=== PATIENT | female | born 1945 | race African-American/Black ===

== ENCOUNTER 2016-10-07 10:05 | Inpatient (IN) ==
--- NOTE | 2016-10-07 10:51 | CT Report ---
CT head/brain wo con INDICATION: Altered mental status/confusion The total DLP is 914 mGy*cm. COMPARISON: none available Technique: Serial axial tomographic images of the brain were obtained without the use of intravenous contrast. Dose reduction: This CT exam was performed using one or more of the following dose reduction techniques: Automated exposure control, automated adjustment of the mA and/or KV according to patient size, or use of iterative reconstruction technique. Findings: Moderate generalized atrophy is noted with mild prominence of the sulci and cortical volume loss. Periventricular white matter hypodensity changes are noted bilaterally which do not demonstrate mass effect and are nonspecific but favored to represent sequela of chronic microvascular ischemia. Somewhat prominent focal hypodensity within the right centrum semiovale is also noted which may represent an age-indeterminate lacunar infarct. There is also focal mild hypodensity within the left caudate and basal ganglia suggestive of remote lacunar infarct. There is no evidence of vascular territory infarct or acute intracranial hemorrhage. The casey-white matter differentiation is generally maintained. There is no hydrocephalus. The basilar cisterns are patent. The visualized paranasal sinuses, mastoid air cells and middle ear cavities are predominantly clear. The included orbits and their contents appear within normal limits. The visualized osseous structures and overlying soft tissues of the skull and face demonstrate no acute abnormality. IMPRESSION: No acute intracranial hemorrhage or infarction. Advanced atrophy with prominent periventricular white matter hypodensity changes suggestive of sequela of chronic microvascular ischemia. Additional somewhat focal areas of hypodensity as detailed above may represent age-indeterminate lacunar infarcts. If there is continued clinical concern for acute infarct, MRI would be recommended. PROCEDURE INTERPRETED AT [facility] DEPARTMENT OF RADIOLOGY Final Report Signed by: John Flanagan
--- NOTE | 2016-10-07 10:53 | XRay Report ---
XR chest 1V portable Indication: Altered mental status Comparison: None Technique: Single frontal view of the chest. Findings: Borderline cardiomegaly. Chronic change of the lungs without focal consolidation, pleural effusion, or pneumothorax. Visualized osseous and surrounding soft tissue structures demonstrate no acute abnormality. Marginal osteophytes of the thoracic spine. IMPRESSION: Borderline cardiomegaly without hallie pulmonary edema. PROCEDURE INTERPRETED AT [facility] DEPARTMENT OF RADIOLOGY Final Report Signed by: Dr Yohan Welsh
[2016-10-07 11:17] LABS: Basophils # 0.1 10*3/uL (0.0-0.2); Basophils % 0.6 % (0.0-0.8); Eosinophils # 0.1 10*3/uL (0.0-0.87); Eosinophils % 1.6 % (0.00-10.9); Hematocrit 37.7 VOL% (35.7-47.0); Hemoglobin 12.7 GM/DL (12.0-16.0); Immature Granulocytes % 0.6 %; Immature Granulocytes Absolute 0.05 #; Lymphocytes # 1.8 10*3/uL (1.4-4.0); Lymphocytes % 19.6 % (21.3-54.2); Mean Corpuscular HGB Conc 33.7 GM/DL (32-36); Mean Corpuscular Hemoglobin 30 PG (27-34); Mean Corpuscular Volume 87.9 FL (87-102); Mean Platelet Volume 9.3 FL (9.6-12.0); Monocytes # 0.8 10*3/uL (0.11-0.8); Monocytes % 8.8 % (1.7-12.7); Neutrophils # 6.2 10*3/uL (1.4-7.4); Neutrophils % 68.8 % (38.7-73.9); Platelet Count 217 T/CUMM (130-400); Red Blood Count 4.29 MC/CUMM (3.8-5.5); Red Cell Distribution Width 14.1 % (9.3-17.3); White Blood Count 8.9 T/CUMM (4-12)
[2016-10-07 11:55] LABS: Bilirubin,Total 0.5 MG/DL (0.2-1.0); Calcium 9.4 MG/DL (8.5-10.1); Osmolality,Calculated 283.5 MOS/KG (273-304); Potassium 4.2 MMOL/L (3.5-5.1); Total Protein 7.6 G/DL (6.4-8.3)
[2016-10-07 11:56] LABS: Troponin I Only 0.094 NG/ML (0.00-0.045)
[2016-10-07 12:02] LABS: Apearance,Urine CLEAR (Clear); Bacteria,Urine Occasional /HPF (Few); Bilirubin,Urine Negative (Negative); Blood, Urine Negative (Negative); Glucose,Urine (UA) Negative (Negative); Ketones,Urine Negative (Negative); Mucus,Urine Occasional /LPF (Occasional); Nitrite,Urine Negative (Negative); Protein,Urine >=500 MG/DL; RBC,Urine 6 /HPF (0-4); Squamous Epithelial Cell,Urine Occasional /HPF (0-10); Urine Color Yellow (Yellow); Urine Specific Gravity 1.013 (1.001-1.035); Urine Urobilinogen < 2.0 EU/DL (0.2-1.0); WBC,Urine <1 /HPF (0-6)
--- NOTE | 2016-10-07 12:58 | EKG Report ---
Stationary ECG Study [facility] ER Test Date: 10/07/2016 12:56:48 PM Pat Name: HAYLEY BRADY Department: Room: Gender: F [employer] Adviser: : 1945 Requested by: Greg Adorno Order Number: [id number] Reading MD: SUMMER MEZA Intervals [place] Rate: 79 P: 33 [place]: 128 QRS: -23 QRSD: 101 T: 83 QT: 379 QTc: 414 Interpretive Statements SINUS RHYTHM POSSIBLE LEFT ATRIAL ENLARGEMENT BORDERLINE LEFT AXIS DEVIATION POSSIBLE LEFT VENTRICULAR HYPERTROPHY NONSPECIFIC T-WAVE ABNORMALITY Electronically Signed On 10-07-16 13:25:56 CDT by SUMMER MEZA [email or web address]
--- NOTE | 2016-10-07 13:03 | Emergency Department Note ---
Trace Castaneda Brittany, am scribing for, and in the presence of, Greg Saldana MD 10:36. Les Castaneda Phillip K, MD, personally performed the services described in this documentation, ascribed by Suma Woodward in my presence, and it is both accurate and complete . Arrival - Arrival Chief Complaint: Altered Mental Status Stated Complaint: AMS From [facility] ED Nursing Triage Note: accucheck 123 mg/dl, pt with decreased loc per e[facility] staff , pt has of traumatic brain injury, hx from pt limited. pt does answer yes and no questions appropriately Mode of Arrival: Stretcher Limitations: No Limitations Source: Patient, RN Notes Reviewed - History of Present Illness HPI Narrative: Patient is a 71 y/o black female presenting to the ED via EMS from [facility] for further evaluation of AMS. Patient was sent here from [facility] after staff noticed change in mental status and were concerned of another CVA. Patient is able to answer yes/no questions appropriately. History is limited secondary to patient's AMS and Dementia. Family at the bedside reports that patient is usually more talkative and her current state is not her baseline, noting that patient is not acting herself. Patient is bedridden with residual left sided weakness from prior CVA and is usually put up in a chair during the daytime. Patient is able to follow commands, but has trouble with orientation to time, person, and place. Family at the bedside is unsure if patient has had any recent fevers. No other complaints reported. PMHx significant for CHF, HTN, CVA, Dementia, IDDM, NIDDM, Dyslipidemia, Gout, and Traumatic Brain Injury. Allergies/Adverse Reactions: Allergies Allergy/AdvReac Type Severity Reaction Status Date / Time No Known Allergies Allergy Verified 10/07/16 10:20 Home Medications: Home Medications Medication Instructions Recorded Confirmed Type Acetaminophen Tab [Tylenol Tab] 650 mg PO Q4H PRN 10/07/16 10/07/16 History Aspirin EC Tab 81 mg PO 0900 10/07/16 10/07/16 History Colchicine [Colcrys] 0.6 mg PO 0900 10/07/16 10/07/16 History Diclofenac 1% Gel [Voltaren 1% Gel] 1 applic TOP TID 10/07/16 10/07/16 History Escitalopram Oxalate 5 mg PO 0900 10/07/16 10/07/16 History Famotidine Tab [Pepcid Tab] 20 mg PO 2100 10/07/16 10/07/16 History Multivitamin with Iron 1 each PO 00 10/07/16 10/07/16 History [Multivitamins with Iron] Tramadol HCl [Tramadol Tab] 50 mg PO Q6H PRN 10/07/16 10/07/16 History hydroCHLOROthiazide 50 mg PO 0910/07/16 10/07/16 History [Hydrochlorothiazide] Review of System - Review of System ROS unobtainable: due to mental status - Review of System Neurological: Present: confusion Medical,Surgical,& Family Hx - Medical History Cardio: History of: CHF, Hypertension Neurology: History of: Cerebrovascular Accident, Dementia Endocrine: History of: Diabetes Mellitus (IDDM), Diabetes Mellitus (NIDDM), Dyslipidemia Rheumatology: History of;: Gout - Social History Smoking Status: Never smoker Exam Vital Signs: Vital Signs Temperature 96.5 F L 10/07/16 10:08 Pulse Rate 72 10/07/16 10:08 Respiratory Rate 22 10/07/16 10:08 Blood Pressure 184/113 10/07/16 10:08 O2 Sat by Pulse Oximetry 98 10/07/16 10:08 - General General appearance: alert, in no apparent distress - Head Head exam: Present: atraumatic, normocephalic, normal inspection - Eye Eye exam: Present: normal appearance, PERRL, EOMI - ENT ENT exam: Present: normal exam, normal oropharynx - Neck Neck exam: Present: normal inspection, full ROM, trachea midline - Chest Chest inspection: Present: normal inspection, symmetric chest wall rise - Respiratory Respiratory exam: Present: normal lung sounds bilaterally - Cardiovascular Cardiovascular exam: Present: regular rate, normal rhythm, normal heart sounds - Abdominal Exam Abdominal exam: Present: soft, tenderness, normal bowel sounds - Extremities Exam Extremities exam: Present: pedal edema (trace +1 edema to bilateral lower extremities). Absent: normal inspection - Back Exam Back exam: Present: normal inspection - Neurological Exam Neurological exam: Present: alert, CN II-XII intact, other (residual left sided weakness from prior CVA). Absent: oriented X3, motor sensory deficit - Psychiatric Psychiatric exam: Present: normal affect, normal mood - Skin Skin exam: Present: warm, dry Results - Labs CBC & BMP: 10/07/16 11:05 10/07/16 11:05 Lab Results: I have reviewed the patients labs (Urinalysis is normal) Labs: Laboratory Tests 10/07/16 11:05 WBC 8.9 RBC 4.29 Hgb 12.7 Hct 37.7 Plt Count 217 MPV 9.3 L Lymph % (Auto) 19.6 L Laboratory Tests 10/07/16 11:05 Sodium 139 Potassium 4.2 Chloride 105 Carbon Dioxide 27 BUN 30 H Creatinine 1.90 H Glucose 119 H Troponin I 0.094 H Albumin 3.0 L Globulin 4.6 H Albumin/Globulin Ratio 0.6 L Laboratory Tests 10/07/16 11:05 Urine Color Yellow Urine Appearance Clear Urine pH 5.0 Ur Specific [place] 1.013 Urine Protein >=500 Urine Glucose (UA) Negative Urine Ketones Negative Urine Blood Negative Urine Nitrate Negative Urine Bilirubin Negative Urine Urobilinogen < 2.0 H Urine Leukocytes Negative Urine RBC 6 Urine WBC <1 Ur Squamous Epith Cells Occasional Urine Bacteria Occasional Urine Mucus Occasional - EKG EKG results: interpreted by ERMAmy, sinus rhythm (Nonspecific ST-T changes) - Diagnostic Findings Procedure: Chest x-ray: report reviewed by me (Borderline cardiomegaly without hallie pulmonary edema.), CT: report reviewed by me (CT Head: No acute intracranial hemorrhage or infarction. Advanced atrophy with prominent periventricular white matter hypodensity changes suggestive of sequela of chronic microvascular ischemia. Additional somewhat focal areas of hypodensity as detailed above may represent age-indeterminate lacunar infarcts. If there is continued clinical concern for acute infarct, MRI would be recommended.) Disposition Clinical Impression: Altered mental status, Elevated troponin Case discussed with: patient's family Disposition: Still a Patient Condition: Guarded Additional Instructions: Admit to the hospitalist
--- NOTE | 2016-10-07 14:08 | Hospitalist History & Physical ---
<Milton Tejeda - Last Filed: 10/07/16 14:15> History of Present Illness History of present illness: Ms. Blake is a 71 year old female is being admitted to the hospital with altered mental status, renal insufficiency, and elevated serum troponin. A CT scan of the head demonstrated no acute abnormalities. I have interviewed and examined the patient, reviewed all available laboratory tests, and reviewed the available x-rays and CT scan. We will continue her present medications. I have ordered an MRI of the brain, and consulted neurology. Home Medications Medication Instructions Recorded Confirmed Type Acetaminophen Tab [Tylenol Tab] 650 mg PO Q4H PRN 10/07/16 10/07/16 History Aspirin EC Tab 81 mg PO 0900 10/07/16 10/07/16 History Colchicine [Colcrys] 0.6 mg PO 0900 10/07/16 10/07/16 History Diclofenac 1% Gel [Voltaren 1% Gel] 1 applic TOP TID 10/07/16 10/07/16 History Escitalopram Oxalate 5 mg PO 0900 10/07/16 10/07/16 History Famotidine Tab [Pepcid Tab] 20 mg PO 2100 10/07/16 10/07/16 History Multivitamin with Iron 1 each PO 0900 10/07/16 10/07/16 History [Multivitamins with Iron] Tramadol HCl [Tramadol Tab] 50 mg PO Q6H PRN 10/07/16 10/07/16 History hydroCHLOROthiazide 50 mg PO 0900 10/07/16 10/07/16 History [Hydrochlorothiazide] Allergies Allergy/AdvReac Type Severity Reaction Status Date / Time No Known Allergies Allergy Verified 10/07/16 10:20 Exam - Constitutional Vitals: Period Temp Pulse Resp BP Sys/Leger Pulse Ox Last 24 Hr 96.5 F 72 22 184/113 98 Results - Labs CBC & BMP: 10/07/16 11:05 10/07/16 11:05 <Emily Villanueva - Last Filed: 10/07/16 15:31> Assessment and Plan (1) Altered mental status Status: Acute Assessment and plan: Admit to med surg. CT showed 'no acute intracranial hemorrhage or infarction'. Also showed somewhat focal areas of hypodensity as detailed above may represent age-indeterminate lacunar infarcts'. MRI pending. Blood cultures obtained. UA negative. Normal WBC count. Monitor patient daily labs. Lipid panel ordered. Will consult neuro for evaluation. Current Visit: Yes (2) Elevated troponin level Status: Acute Assessment and plan: Possibly secondary to renal function. Will cycle troponins to rule out any cardiac issues. Current Visit: Yes (3) Diabetes Status: Acute Assessment and plan: Accuchecks achs. Current Visit: Yes History of Present Illness Chief complaint: altered mental status History of present illness: Ms. Blake is a 71 year old female with a history of hypertension, CHF, CVA, diabetes, dementia, dyslipidemia, gout, and traumatic brain injury presented to the ED via EMS from [facility]. Patient was sent over for further evaluation of altered mental status. Staff at the facility were concerned the patient was having another CVA. Family member is present at the bedside. Family reports that patient's current state is not her baseline. Pt is unable to provide any information. She is oriented only to self and birthdate. She is able to follow commands. CXR showed 'borderline cardiomegaly without hallie pulmonary edema'. CT revealed 'no acute intracranial hemorrhage or infarct ' showed additional somewhat focal areas of hypodensity may represent age indeterminate lacunar infarcts. Pt. will be admitted for further eval and treatment. Medical,Surgical,& Family Hx - Medical History Cardio: History of: CHF, Hypertension Neurology: History of: Cerebrovascular Accident, Dementia Endocrine: History of: Diabetes Mellitus (IDDM), Diabetes Mellitus (NIDDM), Dyslipidemia Rheumatology: History of;: Gout - Social History Smoking Status: Never smoker Lives With:: senior care Functional capacity: wheelchair bound ROS unobtainable: due to mental status Exam - Constitutional Vitals: Period Temp Pulse Resp BP Sys/Leger Pulse Ox Last 24 Hr 96.5 F 72 22 184/113 98 General appearance: no acute distress, morbidly obese - Head Head exam: Present: normal inspection, normocephalic - Eye Eye exam: Present: EOMI. Absent: scleral icterus Pupils: Present: CARLOS - Respiratory Respiratory exam: Present: clear to auscultation bilaterally. Absent: wheezes - Cardiovascular Cardiovascular exam: Present: regular rate and rhythm - GI/Abdominal GI/Abdominal exam: Present: normal bowel sounds, soft. Absent: tenderness - Extremities Exam Extremities exam: Present: normal inspection - Neurological Exam Neurological exam: Present: altered. Absent: oriented X3 - Psychiatric Psychiatric exam: Absent: normal mood - Skin Skin exam: Present: normal color, warm, dry Results - Labs CBC & BMP: 10/07/16 11:05 10/07/16 11:05 Lab Results: I have reviewed the past 24 hour labs
[2016-10-07] MEDS ORDERED: ACETAMINOPHEN 325 MG TABLET PO PRN (15:13)
[2016-10-07] MEDS ORDERED: ONDANSETRON 4 MG/2 ML VIAL IV PRN (15:13)
[2016-10-07 15:47] LABS: Barbiturates Screen,Urine Negative (Negative); Benzodiazepines Screen,Urine Negative (Negative); Cannabinoid Screen,Urine Negative (Negative); Opiate Screen,Urine Negative (Negative); Phencyclidine Screen,Urine Negative (Negative)
--- NOTE | 2016-10-07 16:11 | Neurology Consult Note ---
History of Present Illness History of present illness: Patient is unable to provide me any history. History basically obtained from the chart. 71 years old -Greek lady with past medical history significant for congestive heart failure, hypertension, CVA, dementia, diabetes , dyslipidemia, gout, traumatic brain injury who is a shelter resident admitted to the hospital with change in mental status. Patient is bedridden with residual left-sided weakness from prior CVA and is usually transferred from bed to chair during the daytime. At the baseline patient is able to answer yes or no questions appropriately. However nursing staff at that shelter noted that she is not following commands appropriately. Family also reported that patient is usually more talkative and her current state is not her baseline. She is now being admitted for further evaluation. A CT of the brain reveals no acute abnormalities. Home Medications Medication Instructions Recorded Confirmed Type Acetaminophen Tab [Tylenol Tab] 650 mg PO Q4H PRN 10/07/16 10/07/16 History Aspirin EC Tab 81 mg PO 0900 10/07/16 10/07/16 History Colchicine [Colcrys] 0.6 mg PO 0900 10/07/16 10/07/16 History Diclofenac 1% Gel [Voltaren 1% Gel] 1 applic TOP TID 10/07/16 10/07/16 History Escitalopram Oxalate 5 mg PO 0900 10/07/16 10/07/16 History Famotidine Tab [Pepcid Tab] 20 mg PO 2100 10/07/16 10/07/16 History Multivitamin with Iron 1 each PO 0900 10/07/16 10/07/16 History [Multivitamins with Iron] Tramadol HCl [Tramadol Tab] 50 mg PO Q6H PRN 10/07/16 10/07/16 History hydroCHLOROthiazide 50 mg PO 0900 10/07/16 10/07/16 History [Hydrochlorothiazide] Allergies Allergy/AdvReac Type Severity Reaction Status Date / Time No Known Allergies Allergy Verified 10/07/16 10:20 ROS unobtainable: due to mental status Medical,Surgical,& Family Hx - Medical History Cardio: History of: CHF, Hypertension Psychological: No history of: Anxiety Disorders, ADHD, Behavior Problems, Bipolar Disorder, Depression, Previous Suicide Attempt, Psychiatric/Substance Abuse Tx, Schizophrenia, Violent Behavior, Psychiatric Problems Neurology: History of: Cerebrovascular Accident, Dementia Endocrine: History of: Diabetes Mellitus (IDDM), Diabetes Mellitus (NIDDM), Dyslipidemia Rheumatology: History of;: Gout Gastrointestinal: History of: GI Problems (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 NECK: Neck is supple. There is no JVD. No carotid bruits present. No thyroid masses. CVS: First and second heart sounds are normal. There is no S3 present. Regular rate and rhythm. RESPIRATORY: Lungs are clear to auscultation without any rales or rhonchi. ABDOMEN: Soft and non-tender. Bowel sounds are present. There is no hepatosplenomegaly. EXT: There is no palpable edema. Peripheral pulses are present. Skin: No rashes Central Nervous system: General: Sleepy but arousable Speech: Non-Fluent Comprehension: Impaired Facial expressions: Normal Cranial Nerves: Pupils are equally reactive to light. Extraocular movements are intact. No facial asymmetry is seen. Motor: Hypertonia in all 4 extremities. Strength cannot be assessed Sensory: Cannot be assessed Reflexes: 1+ and symmetrical Cerebellar function: Cannot be assessed Toes: Equivocal Gait: Cannot be assessed Results - Labs CBC & BMP: 10/07/16 11:05 10/07/16 11:05 Assessment and Plan (1) Altered mental status Status: Acute Assessment and plan: Differential diagnosis would include infectious/metabolic encephalopathy, new stroke, extension of the old stroke etc. Agree with MRI of the brain. Start and continue aspirin a day We will do MRI and make further recommendations. Thank you for the consult Current Visit: Yes
--- NOTE | 2016-10-07 17:41 | Magnetic Resonance Report ---
Exam: MR head/brain wo con Date: 10/07/2016 3:13 PM Comparison: CT brain 10/07/2016 Indication: Alteration of consciousness, renal insufficiency Technique:[Multiple acquisitions were obtained including sagittal T1, coronal T2, and axial ADC, diffusion, FLAIR, T2, GRE, and T1 scans without contrast only. Scans were obtained on a 1.5 Ana magnet.] Findings: Scans are degraded by motion artifact. The left lateral ventricle remains minimally larger in size than the right with no midline displacement. The pituitary has a normal appearance and the cerebellar tonsils are normal in their location. No acute infarction is identified on the diffusion scans. No evidence of hemorrhage, mass, or extracerebral collection. Diffuse atrophy and FLAIR/T2 hyperintensities. Chronic right centrum semiovale ovale, left grover radiata, and left pontine infarcts. Minimal mucosal thickening in the left maxillary sinus. No acute findings in the orbits, temporal bones, or [place]. Impression: Unfortunately the scans are degraded by motion artifact. No acute infarction. Diffuse atrophy with moderately severe microvascular disease and chronic infarcts. T2 hyperintensities can also be associated with demyelinating disease, vasculitis, viral illness, etc. PROCEDURE INTERPRETED AT [facility] DEPARTMENT OF RADIOLOGY Final Report Signed by: Dr. Irlanda Chiang
[2016-10-08 07:03] LABS: Basophils # 0.1 10*3/uL (0.0-0.2); Basophils % 0.8 % (0.0-0.8); Eosinophils # 0.2 10*3/uL (0.0-0.87); Eosinophils % 3.3 % (0.00-10.9); Hematocrit 33.8 VOL% (35.7-47.0); Hemoglobin 11.1 GM/DL (12.0-16.0); Immature Granulocytes % 0.4 %; Immature Granulocytes Absolute 0.03 #; Lymphocytes # 2.2 10*3/uL (1.4-4.0); Mean Corpuscular HGB Conc 32.8 GM/DL (32-36); Mean Corpuscular Hemoglobin 29 PG (27-34); Mean Corpuscular Volume 88.9 FL (87-102); Mean Platelet Volume 10.1 FL (9.6-12.0); Monocytes # 0.8 10*3/uL (0.11-0.8); Monocytes % 11.2 % (1.7-12.7); Neutrophils # 3.9 10*3/uL (1.4-7.4); Neutrophils % 54.3 % (38.7-73.9); Platelet Count 203 T/CUMM (130-400); Red Cell Distribution Width 14.2 % (9.3-17.3); White Blood Count 7.2 T/CUMM (4-12)
[2016-10-08 07:39] LABS: Calcium 9.4 MG/DL (8.5-10.1); Osmolality,Calculated 286.4 MOS/KG (273-304); Potassium 4.2 MMOL/L (3.5-5.1); Risk Ratio 1.9; Thyroid Stimulating Hormone 2.44 uIU/ml (0.358-3.74); VLDL CHOLESTEROL 9.6 MG/DL
--- NOTE | 2016-10-08 08:37 | Neurology Progress Note ---
Neurology - PN : Subjective Interval history: Patient may be a little better today. MRI of the brain failed to show any acute stroke. Patient's exact baseline is not known. She is from [facility]. UA is negative. Exam (Progress Note) - Constitutional Vitals: Period Temp Pulse Resp BP Sys/Leger Pulse Ox Last 24 Hr 96.5 F-98.9 F 58-74 16-22 135-184/69-113 94-99 Exam: GENERAL: Patient is in no acute distress. NECK: Neck is supple. There is no JVD. No carotid bruits present. No thyroid masses. CVS: First and second heart sounds are normal. There is no S3 present. Regular rate and rhythm. RESPIRATORY: Lungs are clear to auscultation without any rales or rhonchi. ABDOMEN: Soft and non-tender. Bowel sounds are present. There is no hepatosplenomegaly. EXT: There is no palpable edema. Peripheral pulses are present. Skin: No rashes Central Nervous system: General: Alert and awake Speech: Non-Fluent Comprehension: Impaired Facial expressions: Normal Cranial Nerves: Pupils are equally reactive to light. Extraocular movements are intact. No facial asymmetry is seen. Motor: Hypertonia in all 4 extremities. Strength cannot be assessed Sensory: Cannot be assessed Reflexes: 1+ and symmetrical Cerebellar function: Cannot be assessed Toes: Equivocal Gait: Cannot be assessed Results - Labs CBC & BMP: 10/08/16 05:47 10/08/16 05:47 Assessment and Plan (1) Altered mental status Status: Acute Assessment and plan: Differential diagnosis would include infectious/metabolic encephalopathy. No evidence of a new stroke. continue aspirin a day Ok to go back to [facility] when ok with PCP Sign off please call PRN Current Visit: Yes
[2016-10-08] MEDS: ASPIRIN EC 81 MG TABLET PO SCH (10:23)
[2016-10-08] MEDS: PANTOPRAZOLE 40 MG TABLET PO SCH (10:23)
[2016-10-08] MEDS ORDERED: VANCOMYCIN INJ 2,500 MG in SODIUM CHLORIDE 0.9% 500 ML IV ONE (13:00)
--- NOTE | 2016-10-08 14:35 | Hospitalist Progress Note ---
Assessment and Plan (1) Altered mental status Status: Acute Assessment and plan: MRI showed No acute infarction. Diffuse atrophy with moderately severe microvascular disease and chronic infarcts.Differential diagnosis would include infectious/metabolic encephalopathy. Neurology has seen, will follow recommendations. Current Visit: Yes (2) Staphylococcus aureus bacteremia Status: Acute Assessment and plan: BCx2 grew MRSA negative Plan Switch Vanc to Rocephin, follow sensitivity Current Visit: Yes (3) Elevated troponin level Status: Acute Assessment and plan: Will follow Echo Current Visit: Yes (4) Diabetes Status: Acute Assessment and plan: FeU3i-4.5, continue with current regime. Current Visit: Yes (5) Acute renal failure Status: Acute Assessment and plan: will hydrate gently, avoid nephrotoxics and switch Vanc to Rocephin, culture was MRSA negative. Current Visit: Yes (6) HTN (hypertension) Status: Acute Assessment and plan: will start Norvasc 5mg daily, follow response Current Visit: Yes Hospitalist: Subjective Interval history: patient seen today.Her blood cultures grew MRSA negative but no evidence of fever. Exam - Constitutional Vitals: Period Temp Pulse Resp BP Sys/Leger Pulse Ox Last 24 Hr 96.5 F-98.9 F 58-74 16-22 135-184/69-113 94-99 General appearance: no acute distress, morbidly obese - Head Head exam: Present: normal inspection - Respiratory Respiratory exam: Present: clear to auscultation bilaterally - Cardiovascular Cardiovascular exam: Present: regular rate and rhythm - GI/Abdominal GI/Abdominal exam: Present: normal bowel sounds - Extremities Exam Extremities exam: Present: normal inspection Results - Labs CBC & BMP: 10/08/16 05:47 10/08/16 05:47 Lab Results: I have reviewed the past 24 hour labs
[2016-10-08] MEDS: SODIUM CHLORIDE 0.9% 1,000 ML IV SCH (15:13)
[2016-10-08] MEDS: cefTRIAXone 1,000 MG in SODIUM CHLORIDE 0.9% 100 ML IV SCH (15:13)
[2016-10-08] MEDS: amLODIPine 5 MG TABLET PO SCH (15:14)
--- NOTE | 2016-10-08 17:58 | ECHO Report ---
Addie Blake Exam Date: 10/08/2016 10:49 Referring Physician: Technologist: Jeannette Jordan RDCS Age: 71 Ht (in): 66 Wt (lb): 255 Gender: F Exam Location: [facility] Echo Indications: Altered mental status, Elevated troponin, IDDM, Essential (primary) hypertension, Dementia, Dyslipidemia, hx Traumatic brain injury BP: 140 / 73 HR: 58 Rhythm: Sinus Technical Quality: IMPRESSIONS Technically difficult study Normal chamber sizes 2+ concentric LVH Normal LV systolic function with ejection fraction estimated to be 65% without segmental wall motion normality 1-2+ aortic regurgitation 1+ mitral and tricuspid regurgitation with RVSP 29 mmHg plus RAP MEASUREMENTS (Male / Female) Normal Values 2D ECHO LV Diastolic Diameter PLAX 4.6 cm 4.2 - 5.9 / 3.9 - 5.3 cm LV Systolic Diameter PLAX 3.1 cm LV Fractional Shortening PLAX 32.7 % IVS Diastolic Thickness 1.6 cm 0.6 - 1.0 / 0.6 - 0.9 cm LVPW Diastolic Thickness 1.6 cm 0.6 - 1.0 / 0.6 - 0.9 cm RV Internal Dim ED PLAX 3.0 cm Aortic Root Diameter 3.2 cm LA Systolic Diameter LX 3.4 cm 3.0 - 4.0 / 2.7 - 3.8 cm DOPPLER TR Peak Velocity 269.0 cm/s TR Peak Gradient 28.9 mmHg FINDINGS Left Ventricle Normal left ventricular cavity size. Moderate left ventricular hypertrophy. Left ventricular ejection fraction is estimated Right Ventricle The right ventricle is normal in size and function. Right Atrium The right atrium is normal in size. Left Atrium The left atrium is normal in size. Mitral Valve Morphologically normal mitral valve. Mild mitral valve regurgitation. Aortic Valve The aortic valve is trileaflet and has normal motion. [id number] aortic valve regurgitation. Tricuspid Valve Morphologically normal tricuspid valve. Mild tricuspid valve regurgitation. Tricuspid regurgitation velocities suggest a PAP of 39 mmHg. Pulmonic Valve Morphologically normal pulmonic valve without significant stenosis. There is no pulmonic regurgitation. Pericardium Normal pericardium without effusion. Aorta Normal ascending aorta dimension. Will Hernandez (Electronically Signed) Final Date: 08 October 2016 17:56
[2016-10-09] MEDS: SODIUM CHLORIDE 0.9% 1,000 ML IV SCH (05:59)
[2016-10-09 06:18] LABS: Basophils % 0.6 % (0.0-0.8); Eosinophils # 0.3 10*3/uL (0.0-0.87); Eosinophils % 5.3 % (0.00-10.9); Immature Granulocytes % 0.5 %; Immature Granulocytes Absolute 0.03 #; Lymphocytes # 1.8 10*3/uL (1.4-4.0); Lymphocytes % 28.9 % (21.3-54.2); Mean Corpuscular HGB Conc 33.3 GM/DL (32-36); Mean Corpuscular Hemoglobin 30 PG (27-34); Mean Corpuscular Volume 88.8 FL (87-102); Monocytes # 0.7 10*3/uL (0.11-0.8); Monocytes % 10.9 % (1.7-12.7); Neutrophils # 3.4 10*3/uL (1.4-7.4); Neutrophils % 53.8 % (38.7-73.9); Platelet Count 199 T/CUMM (130-400); Red Blood Count 3.38 MC/CUMM (3.8-5.5); Red Cell Distribution Width 13.8 % (9.3-17.3); White Blood Count 6.3 T/CUMM (4-12)
[2016-10-09 06:42] LABS: Calcium 8.4 MG/DL (8.5-10.1); Osmolality,Calculated 290.3 MOS/KG (273-304); Potassium 3.9 MMOL/L (3.5-5.1)
--- NOTE | 2016-10-09 09:40 | Discharge Summary ---
<Birdie Helmsda - Last Filed: 10/09/16 09:31> Hospital Course - Hospital Course Hospital Course: This is a very pleasant 71-year-old female that presented to the ED at [facility] on October 07, 2016 as a transfer from the [facility] for the evaluation of altered mental status. The patient has a medical history significant for hypertension, congestive heart failure, cerebrovascular accident, diabetes, dementia, dyslipidemia, gouty arthritis, and traumatic brain injury. No surgical history was reported at the time of encounter. According to the EMS report, the staff noticed that the patient was less responsive. They became concerned that the patient may have been experiencing some sort of neurological episode; prompting them to send her to the ED for further evaluation. At the time of ED presentation, the patient was only oriented to self and birthdate however she was able to follow commands. Labs were obtained which were significant for BUN of 30, creatinine 1.90, and glucose 119. In addition, troponins were noted at 0.083. Chest x-ray significant for borderline cardiomegaly without hallie pulmonary edema. CT scan was essentially unremarkable for any acute intracranial hemorrhage or infarct however, multiple areas of focal hypodensity were noted which will possibly product support representative of lacunar infarcts however the age is undetermined. The patient was subsequently admitted to the hospitalist service for continuation of care. The patient was admitted and supportive care was initiated. Gentle rehydration was initiated. A neurology consultation was requested. The patient was seen and evaluated. On October 07, 2016, the patient underwent MRI of the brain without contrast which reported no acute infarction however diffuse atrophy and moderately severe microvascular disease and chronic infarcts were noted. Echocardiogram was ordered on October 08, 2016 which reported normal left ventricular systolic function with ejection fraction estimated at 65% without segmental wall abnormality, 12+ aortic regurgitation, 1+ mitral and tricuspid regurgitation with RVSP 29 mmHg plus RAP. The patient's condition slowly improved. The patient's condition is stable. She has not experienced any significant overnight events. Today,she complained of a left knee pain and Xray showed a [id number] tricompartmental degenerative change.She will get an CT prior to dc, continue with pain meds and encourage PT at the [facility]. We feel that she is indeed appropriate for discharge back to the [facility] for continuation of care.Blood culture grew MRSA negative. She was started on IV Rocephin and will be dcd on Augmentin 875mg bid x 10days. . Discharge Plan - Discharge Data Disposition: Disch/Xfer to Snf - Discharge Medications New amLODIPine [Norvasc] 5 mg PO DAILY #30 tablet HYDROcodone/ACETAMIN 5-325 [Callery 5-325] 1 tablet PO Q4H PRN #20 tablet PRN Reason: Pain Mild (1-3) Acetaminophen Tab [Tylenol Tab] 650 mg PO Q4H PRN tablet PRN Reason: Fever, Headache, Mild Pain Levofloxacin Tab [Levaquin Tab] 500 mg PO DAILY #10 tablet Amoxicillin/Clav Tab [Augmentin Tab] 875 mg PO Q12H #20 tablet Continue Escitalopram Oxalate 5 mg PO 0900 Acetaminophen Tab [Tylenol Tab] 650 mg PO Q4H PRN PRN Reason: Pain Mild (1-3) Tramadol HCl [Tramadol Tab] 50 mg PO Q6H PRN PRN Reason: SEVERE PAIN Diclofenac 1% Gel [Voltaren 1% Gel] 1 applic TOP TID Multivitamin with Iron [Multivitamins with Iron] 1 each PO 0900 Famotidine Tab [Pepcid Tab] 20 mg PO 2100 Colchicine [Colcrys] 0.6 mg PO 0900 Aspirin EC Tab 81 mg PO 0900 Discontinued hydroCHLOROthiazide [Hydrochlorothiazide] 50 mg PO 0900 - Follow Up or Referral - Forms/Instructions Instructions: Diabetic Foot Care (DC), Chronic Hypertension (DC), Altered Mental Status (GEN) Exam - Constitutional Vitals: Period Temp Pulse Resp BP Sys/Leger Pulse Ox Last 24 Hr 97.6 F-98.5 F 50-59 16-22 140-178/71-85 93-100 Discharge Results Procedures and tests throughout hospitalization: Pending Orders 10/07/16 11:44 Blood Culture Stat 10/09/16 11:28 CT knee LT wo con Routine Labs on day of discharge: Labs from last 24 hours 10/09/16 10/09/16 05:05 05:05 WBC 6.3 RBC 3.38 L Hgb 10.0 L Hct 30.0 L MCV 88.8 MCH 30 MCHC 33.3 RDW 13.8 Plt Count 199 MPV 10.0 Neut % (Auto) 53.8 Lymph % (Auto) 28.9 [place] % (Auto) 10.9 Eos % (Auto) 5.3 Baso % (Auto) 0.6 Neut # (Auto) 3.4 Lymph # (Auto) 1.8 [place] # (Auto) 0.7 Eos # (Auto) 0.3 Baso # (Auto) 0.0 Immature Gran % 0.5 Nucleated RBC % 0.0 Immature Gran # 0.03 Nucleated RBCs # 0.00 Immature Plt Fraction 0.0 Sodium 141 Potassium 3.9 Chloride 106 Carbon Dioxide 27 Anion Gap 11.9 BUN 41 H Creatinine 2.10 H GFR Calculation 34 BUN/Creatinine Ratio 19.00 Glucose 92 Calculated Osmolality 290.3 Calcium 8.4 L Preliminary micro results at discharge 10/07/16 11:06 Blood Culture - Preliminary Blood Gram Positive Cocci 10/07/16 11:44 Blood Culture - Preliminary Blood Gram Positive Cocci DS: Provider Date of admission: 10/07/16 13:13 Primary care physician: . No PCP Attending physician on admission: Milton Tejeda Consults: 10/07/16 15:13 Consult to Occupational Therapy [CONS] Routine Reason for Occupational Therapy: Evaluate and Treat Consult Comment: Stroke Consult to Physical Therapy [CONS] Routine Reason for Physical Therapy: Evaluate and Treat Consult Comment: stroke Consult to Physician [CONS] Routine Comment: altered mental status Consulting Provider: Kenrick Lei Person Notified: aware Date Notified: 10/08/16 Time Notified: 09:24 10/08/16 10:21 Consult to Pharmacy [CONS] Routine Reason for Pharmacy Consult: Dose/Manage Vancomycin Discharging clinician: Sonali Helms CNP <Mila Patricio - Last Filed: 10/09/16 12:28> Hospital Course - Time spent with patient Time with patient DS: Greater than 30 minutes (Time spent greater than 35mins) Diagnosis - Discharge Diagnosis (1) Altered mental status Status: Acute (2) Staphylococcus aureus bacteremia Status: Acute (3) Elevated troponin level Status: Acute (4) Diabetes Status: Acute (5) Acute renal failure Status: Acute (6) HTN (hypertension) Status: Acute Discharge Plan - Discharge Data Condition at Discharge: Stable Discharge Diet: advance to your usual diet Activity: resume usual activities as tolerated - Forms/Instructions Additional Discharge Instructions: Follow PCP in 1week Exam - Constitutional General appearance: no acute distress, morbidly obese - Head Head exam: Present: normal inspection - Respiratory Respiratory exam: Present: clear to auscultation bilaterally - Cardiovascular Cardiovascular exam: Present: regular rate and rhythm - GI/Abdominal GI/Abdominal exam: Present: normal bowel sounds - Extremities Exam Extremities exam: Present: normal inspection - Neurological Exam Neurological exam: Present: alert
[2016-10-09] MEDS: ASPIRIN EC 81 MG TABLET PO SCH (10:21)
[2016-10-09] MEDS: amLODIPine 5 MG TABLET PO SCH (10:21)
[2016-10-09] MEDS: PANTOPRAZOLE 40 MG TABLET PO SCH (10:22)
--- NOTE | 2016-10-09 11:22 | XRay Report ---
XR knee 2V LT Indication: Pain Comparison: None Technique: Frontal and lateral views of the left knee. Findings: [id number] tricompartmental degenerative change. There is age-indeterminate mild concave deformity of the lateral aspect of the lateral tibial plateau. Clinically correlate for possible recent trauma. If clinically indicated, CT may be obtained for further evaluation. IMPRESSION: As above. PROCEDURE INTERPRETED AT [facility] DEPARTMENT OF RADIOLOGY Final Report Signed by: Dr Yohan Welsh
--- NOTE | 2016-10-09 13:46 | CT Report ---
CT knee LT wo con Indication: Follow-up x-ray Comparison: None Technique: Multiple axial tomographic images of the left knee were obtained without the use of intravenous contrast. Coronal and sagittal reformatted images provided. Findings: Moderate to severe tricompartmental degenerative change with marginal osteophyte formation and subchondral cystic change. Significant demineralization of bone. Old appearing concave deformity of the articular surface of the lateral tibial plateau without acute fracture line demonstrated. No definite acute fracture/dislocation. Small suprapatellar effusion. Small Torres's cyst. Mild nonspecific subcutaneous emphysema about the knee. IMPRESSION: As above. The CT exam was performed using one or more of the following dose reduction techniques: Automated exposure control, adjustment of the mA and/or kV according to patient size, or use of iterative reconstruction technique. PROCEDURE INTERPRETED AT [facility] DEPARTMENT OF RADIOLOGY Final Report Signed by: Dr Yohan Welsh
[2016-10-09 16:49] VITALS: BP 156/66
[2016-10-09] MEDS: cefTRIAXone 1,000 MG in SODIUM CHLORIDE 0.9% 100 ML IV SCH (17:01)
[2016-10-10] MEDS ORDERED: VANCOMYCIN INJ 1,750 MG in SODIUM CHLORIDE 0.9% 500 ML IV SCH (13:00)
== END 2016-10-09 17:35 | disposition home or self-care (01) | DRG 948 ==
LOC: N.ED 10:05 → SUATTDRO 13:13 → N.EDINP 13:13 → N.5E 14:12
PROVIDERS: ATTEND Internal Medicine

== ENCOUNTER 2018-05-18 21:22 | Inpatient (IN) ==
[2018-05-19] MEDS ORDERED: GLUCAGON 1 MG VIAL IM PRN (00:29)
[2018-05-19] MEDS ORDERED: ALBUTEROL 2.5 MG/3 ML NEB RESP TX PRN (00:29)
[2018-05-19] MEDS ORDERED: PANTOPRAZOLE 40 MG VIAL IV SCH (00:30)
[2018-05-19] MEDS: DEXTROSE 50% 25 GM/50 ML SYRINGE IV PRN ×5 (01:03→16:01)
[2018-05-19] MEDS: INSULIN REGULAR 100 UNIT/ML SUBCUT SCH ×5 (01:03→22:24)
[2018-05-19] MEDS ORDERED: BICILLIN CR 1,200,000 UNIT/2 ML SYRINGE IM ONE (01:30)
[2018-05-19 04:04] LABS: Apearance,Urine CLOUDY (Clear); Bacteria,Urine Many /HPF (Few); Bilirubin,Urine Negative (Negative); Blood, Urine Large mg/dL (Negative); Glucose,Urine (UA) Negative (Negative); Ketones,Urine Negative (Negative); Mucus,Urine Occasional /LPF (Occasional); Nitrite,Urine Negative (Negative); Protein,Urine 100 MG/DL; RBC,Urine 202 /HPF (0-4); Urine Color Yellow (Yellow); Urine Specific Gravity 1.014 (1.001-1.035); Urine Urobilinogen < 2.0 EU/DL (0.2-1.0); WBC,Urine 31 /HPF (0-6)
[2018-05-19] MEDS ORDERED: ONDANSETRON 4 MG/2 ML VIAL ONE (05:37)
[2018-05-19] MEDS ORDERED: ONDANSETRON 4 MG/2 ML VIAL IV PRN (05:40)
[2018-05-19 06:57] LABS: Basophils % 0.4 % (0.0-0.8); Eosinophils # 0.1 10*3/uL (0.0-0.87); Eosinophils % 1.2 % (0.00-10.9); Hematocrit 29.5 VOL% (35.7-47.0); Immature Granulocytes % 1.1 %; Immature Granulocytes Absolute 0.09 #; Lymphocytes # 1.2 10*3/uL (1.4-4.0); Lymphocytes % 14.2 % (21.3-54.2); Mean Corpuscular HGB Conc 30.5 GM/DL (32-36); Mean Corpuscular Hemoglobin 27 PG (27-34); Mean Corpuscular Volume 88.3 FL (87-102); Monocytes # 0.5 10*3/uL (0.11-0.8); Monocytes % 5.7 % (1.7-12.7); NRBC # 0.11 10*3/uL; Neutrophils # 6.4 10*3/uL (1.4-7.4); Neutrophils % 77.4 % (38.7-73.9); Platelet Count 106 T/CUMM (130-400); Red Blood Count 3.34 MC/CUMM (3.8-5.5); Red Cell Distribution Width 19.7 % (9.3-17.3); White Blood Count 8.3 T/CUMM (4-12)
[2018-05-19] MEDS ORDERED: cefTRIAXone 1,000 MG in SYRINGE 1 EACH IV SCH (07:00)
[2018-05-19 07:13] LABS: Hypochromasia 1+; Platelet Estimate Decreased
[2018-05-19 07:14] LABS: Ovalocytes Slight
[2018-05-19 07:26] LABS: Alanine Aminotransferase 155 U/L (13-56); Albumin 2.4 G/DL (3.4-5.0); Alkaline Phosphatase 136 U/L (45-117); Aspartate Amino Transferase 91 U/L (0-37); Bilirubin,Total < 0.39 MG/DL (0.2-1.0); Blood Urea Nitrogen 76 MG/DL (7-18); Calcium 8.8 MG/DL (8.5-10.1); Glucose 72 MG/DL (74-106); Osmolality,Calculated 315.3 MOS/KG (273-304); Potassium 5.9 MMOL/L (3.5-5.1); Sodium 148 MMOL/L (136-145); Total Protein 6.8 G/DL (6.4-8.3)
[2018-05-19] MEDS ORDERED: COLCHICINE 0.3 MG PO SCH (09:00)
[2018-05-19] MEDS: ASPIRIN EC 81 MG TABLET PO SCH (09:00)
[2018-05-19] MEDS ORDERED: FUROSEMIDE 20 MG TABLET PO SCH (09:00)
[2018-05-19] MEDS: MULTIVITAMIN (CENTRUM) TABLET PO SCH (09:01)
[2018-05-19] MEDS ORDERED: SODIUM CHLORIDE 0.9% 1,000 ML IV SCH (11:09)
[2018-05-19] MEDS: DEXTROSE 5% NACL 0.45% 1,000 ML IV SCH (15:58)
[2018-05-19] MEDS ORDERED: SODIUM POLYSTYRENE SULFATE 15 GM/60 ML BOTTLE PO ONE (17:29)
[2018-05-19] MEDS ORDERED: OXYMETAZOLINE 0.05% NASAL SPRAY 15 ML BOTTLE BOTH NARES PRN (18:30)
[2018-05-19] MEDS: FAMOTIDINE 20 MG TABLET PO SCH (22:25)
[2018-05-20] MEDS: DEXTROSE 5% NACL 0.45% 1,000 ML IV SCH ×3 (00:51→16:24)
[2018-05-20 05:18] LABS: Basophils % 0.4 % (0.0-0.8); Eosinophils # 0.1 10*3/uL (0.0-0.87); Eosinophils % 1.1 % (0.00-10.9); Hematocrit 28.3 VOL% (35.7-47.0); Hemoglobin 8.6 GM/DL (12.0-16.0); Immature Granulocytes % 1.3 %; Immature Granulocytes Absolute 0.11 #; Lymphocytes # 1.2 10*3/uL (1.4-4.0); Lymphocytes % 14.1 % (21.3-54.2); Mean Corpuscular HGB Conc 30.4 GM/DL (32-36); Mean Corpuscular Hemoglobin 27 PG (27-34); Mean Platelet Volume 10.9 FL (9.6-12.0); Monocytes # 0.5 10*3/uL (0.11-0.8); Monocytes % 5.5 % (1.7-12.7); NRBC # 0.05 10*3/uL; Neutrophils # 6.4 10*3/uL (1.4-7.4); Neutrophils % 77.6 % (38.7-73.9); Platelet Count 101 T/CUMM (130-400); Red Blood Count 3.18 MC/CUMM (3.8-5.5); White Blood Count 8.2 T/CUMM (4-12)
[2018-05-20 05:38] LABS: Hypochromasia 1+; Lymphocytes 12 % (20-55); Platelet Estimate Decreased; Segmented Neutrophils 85 % (50-85); Total Cells Counted 100
[2018-05-20 05:39] LABS: Ovalocytes Slight
[2018-05-20 05:41] LABS: Calcium 8.9 MG/DL (8.5-10.1); Osmolality,Calculated 312.4 MOS/KG (273-304); Potassium 5.9 MMOL/L (3.5-5.1)
[2018-05-20] MEDS: INSULIN REGULAR 100 UNIT/ML SUBCUT SCH ×4 (08:27→20:57)
[2018-05-20] MEDS: ASPIRIN EC 81 MG TABLET PO SCH (08:27)
[2018-05-20] MEDS: MULTIVITAMIN (CENTRUM) TABLET PO SCH (08:27)
[2018-05-20] MEDS ORDERED: SODIUM BICARB INJ 50 MEQ in STERILE WATER INJ 1,000 ML IV SCH (15:30)
[2018-05-20] MEDS: SODIUM BICARB INJ 100 MEQ in STERILE WATER INJ 1,000 ML IV SCH (16:32)
[2018-05-20] MEDS: FAMOTIDINE 20 MG TABLET PO SCH (21:02)
[2018-05-21 02:24] LABS: Apearance,Urine CLOUDY (Clear); Bacteria,Urine Many /HPF (Few); Bilirubin,Urine Negative (Negative); Blood, Urine Large mg/dL (Negative); Glucose,Urine (UA) Negative (Negative); Ketones,Urine Negative (Negative); Mucus,Urine Few /LPF (Occasional); Nitrite,Urine Negative (Negative); Protein,Urine >=500 MG/DL; RBC,Urine 119 /HPF (0-4); Squamous Epithelial Cell,Urine Occasional /HPF (0-10); Urine Color Yellow (Yellow); Urine Urobilinogen < 2.0 EU/DL (0.2-1.0)
[2018-05-21 02:36] LABS: WBC,Urine TNTC /HPF (0-6)
[2018-05-21 07:53] LABS: Basophils % 0.5 % (0.0-0.8); Eosinophils # 0.1 10*3/uL (0.0-0.87); Eosinophils % 1.9 % (0.00-10.9); Hemoglobin 8.1 GM/DL (12.0-16.0); Immature Granulocytes % 1.9 %; Immature Granulocytes Absolute 0.12 #; Lymphocytes # 1.1 10*3/uL (1.4-4.0); Lymphocytes % 18.1 % (21.3-54.2); Mean Corpuscular HGB Conc 31.2 GM/DL (32-36); Mean Corpuscular Hemoglobin 28 PG (27-34); Mean Corpuscular Volume 88.1 FL (87-102); Mean Platelet Volume 8.8 FL (9.6-12.0); Monocytes # 0.5 10*3/uL (0.11-0.8); Monocytes % 7.5 % (1.7-12.7); NRBC # 0.08 10*3/uL; Neutrophils # 4.4 10*3/uL (1.4-7.4); Neutrophils % 70.1 % (38.7-73.9); Platelet Count 104 T/CUMM (130-400); Red Blood Count 2.95 MC/CUMM (3.8-5.5); Red Cell Distribution Width 19.8 % (9.3-17.3); White Blood Count 6.3 T/CUMM (4-12)
[2018-05-21 08:08] LABS: Calcium 8.3 MG/DL (8.5-10.1); Osmolality,Calculated 312.3 MOS/KG (273-304); Potassium 4.2 MMOL/L (3.5-5.1)
[2018-05-21] MEDS: MULTIVITAMIN (CENTRUM) TABLET PO SCH (08:08)
[2018-05-21] MEDS: ASPIRIN EC 81 MG TABLET PO SCH (08:08)
[2018-05-21] MEDS: INSULIN REGULAR 100 UNIT/ML SUBCUT SCH ×4 (08:08→20:17)
[2018-05-21] MEDS ORDERED: cefTRIAXone 2,000 MG in SYRINGE 1 EACH IV SCH (12:00)
[2018-05-21 13:01] LABS: Anisocytosis 1+; Hypochromasia 1+; Microcytosis 1+
[2018-05-21 13:02] LABS: Ovalocytes Few; Platelet Estimate Adequate; Polychromasia Few; Schistocytes Slight; Tear Drop Cells Slight
[2018-05-21] MEDS: SODIUM BICARB INJ 100 MEQ in STERILE WATER INJ 1,000 ML IV SCH (13:06)
[2018-05-21] MEDS: ERTAPENEM 500 MG in SODIUM CHLORIDE 0.9% 100 ML IV SCH (16:23)
[2018-05-21] MEDS: DEXTROSE 50% 25 GM/50 ML SYRINGE IV PRN (16:25)
[2018-05-21] MEDS: MAGNESIUM GLUCONATE 200 MG/ML 30 ML/BOTTLE PER TUBE SCH (22:33)
[2018-05-21] MEDS: FAMOTIDINE 20 MG TABLET PO SCH (22:33)
[2018-05-22 04:41] LABS: Basophils # 0.1 10*3/uL (0.0-0.2); Basophils % 0.8 % (0.0-0.8); Eosinophils # 0.2 10*3/uL (0.0-0.87); Eosinophils % 2.9 % (0.00-10.9); Hematocrit 27.8 VOL% (35.7-47.0); Hemoglobin 8.6 GM/DL (12.0-16.0); Immature Granulocytes % 1.8 %; Immature Granulocytes Absolute 0.12 #; Lymphocytes # 1.4 10*3/uL (1.4-4.0); Lymphocytes % 20.8 % (21.3-54.2); Mean Corpuscular HGB Conc 30.9 GM/DL (32-36); Mean Corpuscular Hemoglobin 27 PG (27-34); Mean Corpuscular Volume 87.4 FL (87-102); Mean Platelet Volume 8.9 FL (9.6-12.0); Monocytes # 0.6 10*3/uL (0.11-0.8); Monocytes % 8.6 % (1.7-12.7); NRBC # 0.06 10*3/uL; Neutrophils # 4.3 10*3/uL (1.4-7.4); Neutrophils % 65.1 % (38.7-73.9); Platelet Count 99 T/CUMM (130-400); Red Blood Count 3.18 MC/CUMM (3.8-5.5); Red Cell Distribution Width 19.1 % (9.3-17.3); White Blood Count 6.6 T/CUMM (4-12)
[2018-05-22 05:00] LABS: Parathyroid Hormone Intact 116.9 PG/ML (18.4-80.1)
[2018-05-22 05:11] LABS: % Iron Saturation 40.4 % (18-50); Ferritin 1394.5 ng/ml (8-252)
[2018-05-22 05:17] LABS: Folate > 24.0 NG/ML (5.4-24.0); Vitamin B12 1762 PG/ML (211-911)
[2018-05-22 05:53] LABS: Anisocytosis 1+; Hypochromasia 1+; Microcytosis 1+; Ovalocytes 1+; Platelet Estimate Decreased
[2018-05-22 06:02] LABS: Sedimentation Rate-Westergren 120 MM/HR (0-30)
[2018-05-22] MEDS: DEXTROSE 50% 25 GM/50 ML SYRINGE IV PRN ×2 (08:45→19:20)
[2018-05-22] MEDS: INSULIN REGULAR 100 UNIT/ML SUBCUT SCH ×4 (08:55→21:39)
[2018-05-22] MEDS: MAGNESIUM GLUCONATE 200 MG/ML 30 ML/BOTTLE PER TUBE SCH ×2 (12:58→21:39)
[2018-05-22] MEDS: MULTIVITAMIN (CENTRUM) TABLET PO SCH (12:58)
[2018-05-22] MEDS: ASPIRIN EC 81 MG TABLET PO SCH (12:58)
[2018-05-22] MEDS: SODIUM BICARB INJ 100 MEQ in STERILE WATER INJ 1,000 ML IV SCH (13:06)
[2018-05-22] MEDS ORDERED: cloNIDine 0.2 MG/24 HR PATCH TRANSDERM SCH (16:30)
[2018-05-22] MEDS: ERTAPENEM 500 MG in SODIUM CHLORIDE 0.9% 100 ML IV SCH (17:52)
[2018-05-22] MEDS ORDERED: DEXTROSE 50% 25 GM/50 ML VIAL IV ONE (20:22)
[2018-05-22] MEDS: FAMOTIDINE 20 MG TABLET PO SCH (21:39)
[2018-05-23 06:04] LABS: Calcium 8.8 MG/DL (8.5-10.1); Osmolality,Calculated 308.3 MOS/KG (273-304); Potassium 4.3 MMOL/L (3.5-5.1)
[2018-05-23] MEDS: DEXTROSE 50% 25 GM/50 ML SYRINGE IV PRN (07:30)
[2018-05-23] MEDS: INSULIN REGULAR 100 UNIT/ML SUBCUT SCH ×2 (07:53→11:43)
[2018-05-23] MEDS ORDERED: DEXTROSE 50% 25 GM/50 ML VIAL IV PRN (08:00)
[2018-05-23 08:44] LABS: Hemoglobin A1 (Alkaline) 97.4 % (96.5-98.5); Hemoglobin A2 (Alkaline) 2.6 % (1.5-3.5)
[2018-05-23] MEDS: MULTIVITAMIN (CENTRUM) TABLET PO SCH (09:51)
[2018-05-23] MEDS: ASPIRIN EC 81 MG TABLET PO SCH (09:51)
[2018-05-23] MEDS: MAGNESIUM GLUCONATE 200 MG/ML 30 ML/BOTTLE PER TUBE SCH (09:51)
[2018-05-23] MEDS: SODIUM BICARB INJ 100 MEQ in STERILE WATER INJ 1,000 ML IV SCH (12:28)
[2018-05-23] MEDS ORDERED: MAGNESIUM SULF RIDER 1 GM in PREMIX 1 EACH IV ONE (13:29)
[2018-05-23 15:43] LABS: ABG Base Excess 2.2 MMOL/L (-2.5-2.5); ABG HCO3 26.4 MMOL/L (20-26); ABG Oxygen Saturation 97.2 % (95-100); ABG PCO2 48.8 MM HG (35-48); ABG PH 7.367 (7.35-7.45); ABG PO2 89.7 MM HG (80-95); ABG TCO2 26.1 MMOL/L (23-27)
[2018-05-23] MEDS: ERTAPENEM 500 MG in SODIUM CHLORIDE 0.9% 100 ML IV SCH (17:03)
[2018-05-24 05:19] LABS: Basophils % 0.5 % (0.0-0.8); Eosinophils # 0.3 10*3/uL (0.0-0.87); Eosinophils % 7.2 % (0.00-10.9); Hematocrit 24.5 VOL% (35.7-47.0); Hemoglobin 7.6 GM/DL (12.0-16.0); Immature Granulocytes Absolute 0.04 #; Lymphocytes # 1.1 10*3/uL (1.4-4.0); Lymphocytes % 27.7 % (21.3-54.2); Mean Corpuscular Hemoglobin 27 PG (27-34); Mean Platelet Volume 9.5 FL (9.6-12.0); Monocytes # 0.4 10*3/uL (0.11-0.8); Monocytes % 9.1 % (1.7-12.7); NRBC # 0.03 10*3/uL; Neutrophils # 2.2 10*3/uL (1.4-7.4); Neutrophils % 54.5 % (38.7-73.9); Platelet Count 98 T/CUMM (130-400); Red Blood Count 2.85 MC/CUMM (3.8-5.5); Red Cell Distribution Width 18.3 % (9.3-17.3); White Blood Count 4.1 T/CUMM (4-12)
[2018-05-24 05:25] LABS: Calcium 8.4 MG/DL (8.5-10.1); Osmolality,Calculated 306.3 MOS/KG (273-304); Potassium 4.3 MMOL/L (3.5-5.1)
[2018-05-24] MEDS: DEXTROSE 50% 25 GM/50 ML SYRINGE IV PRN ×2 (05:40→11:26)
[2018-05-24 05:41] LABS: Anisocytosis 1+; Hypochromasia 1+; Microcytosis 1+
[2018-05-24 05:42] LABS: Ovalocytes Slight; Platelet Estimate Decreased; Target Cells Slight
[2018-05-24] MEDS: LACTATED RINGERS 1,000 ML IV SCH ×2 (10:41→17:28)
[2018-05-24] MEDS: MULTIVITAMIN (CENTRUM) TABLET PO SCH (10:42)
[2018-05-24] MEDS: ASPIRIN EC 81 MG TABLET PO SCH (10:42)
[2018-05-24] MEDS: SODIUM BICARB INJ 100 MEQ in STERILE WATER INJ 1,000 ML IV SCH (10:43)
[2018-05-24] MEDS: HYDROCORTISONE 100 MG VIAL IV SCH ×2 (10:55→17:48)
[2018-05-24 12:40] LABS: Alanine Aminotransferase 98 U/L (13-56); Alkaline Phosphatase 114 U/L (45-117); Aspartate Amino Transferase 51 U/L (0-37); Bilirubin,Direct < 0.100 MG/DL (0.0-0.20); Bilirubin,Indirect 0.3 MG/DL (0.0-1.0); Bilirubin,Total < 0.39 MG/DL (0.2-1.0)
[2018-05-24] MEDS: ERTAPENEM 500 MG in SODIUM CHLORIDE 0.9% 100 ML IV SCH (17:36)
[2018-05-24] MEDS ORDERED: MIDAZOLAM 10 MG/2 ML VIAL ONE (20:17)
[2018-05-24] MEDS ORDERED: SUCCINYLCHOLINE 200 MG/10 ML VIAL ONE (20:17)
[2018-05-24] MEDS ORDERED: PROPOFOL 200 MG/20 ML VIAL IV ONE (20:18)
[2018-05-24] MEDS: PROPOFOL 1,000 MG/100 ML BOTTLE IV SCH (20:25)
[2018-05-24] MEDS ORDERED: PROPOFOL 1,000 MG/100 ML BOTTLE IV ONE (20:31)
[2018-05-24 21:27] LABS: ABG Base Excess 4.6 MMOL/L (-2.5-2.5); ABG HCO3 26.6 MMOL/L (20-26); ABG Oxygen Saturation 99.1 % (95-100); ABG PCO2 29.7 MM HG (35-48); ABG PO2 427.1 MM HG (80-95); ABG TCO2 27.5 MMOL/L (23-27)
[2018-05-24 21:28] LABS: Allen Test Positive; Pt O2 Delivery Device Ventilator
[2018-05-24] MEDS: niCARdipine INJ 25 MG in SODIUM CHLORIDE 0.9% 240 ML IV PRN (22:47)
[2018-05-25] MEDS: LACTATED RINGERS 1,000 ML IV SCH ×4 (00:50→17:10)
[2018-05-25] MEDS: PROPOFOL 1,000 MG/100 ML BOTTLE IV SCH ×4 (01:05→20:15)
[2018-05-25] MEDS: HYDROCORTISONE 100 MG VIAL IV SCH ×3 (02:09→17:57)
[2018-05-25 02:58] LABS: ABG Base Excess 4.7 MMOL/L (-2.5-2.5); ABG HCO3 26.6 MMOL/L (20-26); ABG Oxygen Saturation 98.8 % (95-100); ABG PCO2 29.5 MM HG (35-48); ABG PH 7.573 (7.35-7.45); ABG PO2 211.5 MM HG (80-95); ABG TCO2 27.5 MMOL/L (23-27); Allen Test Positive; Pt O2 Delivery Device Ventilator
[2018-05-25 05:40] LABS: Calcium 8.6 MG/DL (8.5-10.1); Osmolality,Calculated 307.6 MOS/KG (273-304); Potassium 4.3 MMOL/L (3.5-5.1)
[2018-05-25] MEDS: niCARdipine INJ 25 MG in SODIUM CHLORIDE 0.9% 240 ML IV PRN ×3 (06:20→20:03)
[2018-05-25] MEDS: ASPIRIN EC 81 MG TABLET PO SCH (09:34)
[2018-05-25] MEDS: MULTIVITAMIN (CENTRUM) TABLET PO SCH (09:34)
[2018-05-25] MEDS: ERTAPENEM 500 MG in SODIUM CHLORIDE 0.9% 100 ML IV SCH (17:50)
[2018-05-26] MEDS: PROPOFOL 1,000 MG/100 ML BOTTLE IV SCH ×5 (01:15→20:24)
[2018-05-26] MEDS: HYDROCORTISONE 100 MG VIAL IV SCH ×3 (02:11→17:16)
[2018-05-26 04:15] LABS: Basophils % 0.1 % (0.0-0.8); Hematocrit 25.5 VOL% (35.7-47.0); Hemoglobin 8.3 GM/DL (12.0-16.0); Immature Granulocytes % 0.7 %; Immature Granulocytes Absolute 0.05 #; Lymphocytes # 1.2 10*3/uL (1.4-4.0); Lymphocytes % 17.5 % (21.3-54.2); Mean Corpuscular HGB Conc 32.5 GM/DL (32-36); Mean Corpuscular Hemoglobin 27 PG (27-34); Mean Corpuscular Volume 83.9 FL (87-102); Mean Platelet Volume 9.8 FL (9.6-12.0); Monocytes # 0.4 10*3/uL (0.11-0.8); Monocytes % 5.4 % (1.7-12.7); NRBC # 0.02 10*3/uL; Neutrophils # 5.4 10*3/uL (1.4-7.4); Neutrophils % 76.3 % (38.7-73.9); Platelet Count 150 T/CUMM (130-400); Red Blood Count 3.04 MC/CUMM (3.8-5.5); Red Cell Distribution Width 17.9 % (9.3-17.3); White Blood Count 7.1 T/CUMM (4-12)
[2018-05-26 04:33] LABS: ABG Base Excess 3.2 MMOL/L (-2.5-2.5); ABG HCO3 27.3 MMOL/L (20-26); ABG Oxygen Saturation 99.2 % (95-100); ABG PCO2 24.3 MM HG (35-48); ABG TCO2 22.3 MMOL/L (23-27); Pt O2 Delivery Device Ventilator
[2018-05-26 04:44] LABS: Calcium 8.1 MG/DL (8.5-10.1); Osmolality,Calculated 308.4 MOS/KG (273-304); Potassium 3.9 MMOL/L (3.5-5.1)
[2018-05-26 04:49] LABS: ABG PH 7.606 (7.35-7.45)
[2018-05-26] MEDS: LACTATED RINGERS 1,000 ML IV SCH ×2 (05:40→17:45)
[2018-05-26] MEDS: MULTIVITAMIN (CENTRUM) TABLET PO SCH (09:21)
[2018-05-26] MEDS: ASPIRIN CHEW 81 MG TABLET PO SCH (09:33)
[2018-05-26] MEDS: ASPIRIN EC 81 MG TABLET PO SCH (09:48)
[2018-05-26] MEDS: ERTAPENEM 500 MG in SODIUM CHLORIDE 0.9% 100 ML IV SCH (17:16)
[2018-05-27] MEDS: niCARdipine INJ 25 MG in SODIUM CHLORIDE 0.9% 240 ML IV PRN ×4 (00:35→22:05)
[2018-05-27] MEDS: PROPOFOL 1,000 MG/100 ML BOTTLE IV SCH ×4 (00:35→21:05)
[2018-05-27 03:34] LABS: ABG HCO3 27.1 MMOL/L (20-26); ABG Oxygen Saturation 99.2 % (95-100); ABG PCO2 31.5 MM HG (35-48); ABG PH 7.518 (7.35-7.45); ABG TCO2 23.6 MMOL/L (23-27); Pt O2 Delivery Device Ventilator
[2018-05-27] MEDS: HYDROCORTISONE 100 MG VIAL IV SCH ×3 (03:58→17:55)
[2018-05-27 04:44] LABS: Basophils % 0.1 % (0.0-0.8); Hematocrit 25.3 VOL% (35.7-47.0); Hemoglobin 7.9 GM/DL (12.0-16.0); Immature Granulocytes % 0.9 %; Immature Granulocytes Absolute 0.06 #; Lymphocytes # 1.3 10*3/uL (1.4-4.0); Lymphocytes % 19.9 % (21.3-54.2); Mean Corpuscular HGB Conc 31.2 GM/DL (32-36); Mean Corpuscular Hemoglobin 27 PG (27-34); Mean Corpuscular Volume 86.1 FL (87-102); Mean Platelet Volume 9.8 FL (9.6-12.0); Monocytes # 0.4 10*3/uL (0.11-0.8); Monocytes % 6.3 % (1.7-12.7); Neutrophils # 4.9 10*3/uL (1.4-7.4); Neutrophils % 72.8 % (38.7-73.9); Platelet Count 171 T/CUMM (130-400); Red Blood Count 2.94 MC/CUMM (3.8-5.5); Red Cell Distribution Width 17.7 % (9.3-17.3); White Blood Count 6.7 T/CUMM (4-12)
[2018-05-27 04:47] LABS: PT Patient Result 10.8 SECS
[2018-05-27] MEDS ORDERED: niCARdipine 25 MG/10 ML VIAL IV ONE (05:07)
[2018-05-27 05:19] LABS: Calcium 7.5 MG/DL (8.5-10.1); Osmolality,Calculated 311.3 MOS/KG (273-304)
[2018-05-27] MEDS: LACTATED RINGERS 1,000 ML IV SCH ×2 (07:16→22:00)
[2018-05-27] MEDS: ASPIRIN CHEW 81 MG TABLET PO SCH (11:24)
[2018-05-27] MEDS: MULTIVITAMIN (CENTRUM) TABLET PO SCH (11:24)
[2018-05-27] MEDS: ERTAPENEM 500 MG in SODIUM CHLORIDE 0.9% 100 ML IV SCH (17:56)
[2018-05-28] MEDS: PROPOFOL 1,000 MG/100 ML BOTTLE IV SCH ×3 (02:07→21:46)
[2018-05-28 03:07] LABS: ABG Base Excess 1.8 MMOL/L (-2.5-2.5); ABG Oxygen Saturation 98.2 % (95-100); ABG PCO2 32.9 MM HG (35-48); ABG PH 7.488 (7.35-7.45); ABG PO2 94.1 MM HG (80-95); ABG TCO2 23.1 MMOL/L (23-27); Allen Test Positive
[2018-05-28] MEDS: HYDROCORTISONE 100 MG VIAL IV SCH ×3 (03:09→17:39)
[2018-05-28 04:56] LABS: Hematocrit 24.7 VOL% (35.7-47.0); Hemoglobin 7.7 GM/DL (12.0-16.0); Immature Granulocytes % 0.9 %; Immature Granulocytes Absolute 0.06 #; Lymphocytes # 0.8 10*3/uL (1.4-4.0); Lymphocytes % 12.2 % (21.3-54.2); Mean Corpuscular HGB Conc 31.2 GM/DL (32-36); Mean Corpuscular Hemoglobin 27 PG (27-34); Mean Corpuscular Volume 85.2 FL (87-102); Mean Platelet Volume 9.8 FL (9.6-12.0); Monocytes # 0.3 10*3/uL (0.11-0.8); Monocytes % 5.2 % (1.7-12.7); Neutrophils # 5.3 10*3/uL (1.4-7.4); Neutrophils % 81.7 % (38.7-73.9); Platelet Count 185 T/CUMM (130-400); Red Cell Distribution Width 17.1 % (9.3-17.3); White Blood Count 6.5 T/CUMM (4-12)
[2018-05-28 05:44] LABS: Calcium 7.5 MG/DL (8.5-10.1); Osmolality,Calculated 314.6 MOS/KG (273-304); Potassium 3.8 MMOL/L (3.5-5.1)
[2018-05-28] MEDS: niCARdipine INJ 25 MG in SODIUM CHLORIDE 0.9% 240 ML IV PRN ×2 (08:01→17:41)
[2018-05-28] MEDS: ASPIRIN CHEW 81 MG TABLET PO SCH (09:24)
[2018-05-28] MEDS: MULTIVITAMIN (CENTRUM) TABLET PO SCH (09:24)
[2018-05-28] MEDS: LACTATED RINGERS 1,000 ML IV SCH (11:26)
[2018-05-28] MEDS: INSULIN LISPRO 100 UNIT/ML SUBCUT SCH ×2 (12:40→17:45)
[2018-05-28] MEDS: ERTAPENEM 500 MG in SODIUM CHLORIDE 0.9% 100 ML IV SCH (17:40)
[2018-05-29] MEDS: INSULIN LISPRO 100 UNIT/ML SUBCUT SCH ×4 (00:50→18:21)
[2018-05-29] MEDS: HYDROCORTISONE 100 MG VIAL IV SCH ×3 (00:51→18:07)
[2018-05-29 03:22] LABS: ABG Base Excess 1.2 MMOL/L (-2.5-2.5); ABG HCO3 25.5 MMOL/L (20-26); ABG Oxygen Saturation 98.1 % (95-100); ABG PCO2 37.7 MM HG (35-48); ABG PH 7.435 (7.35-7.45); ABG TCO2 23.4 MMOL/L (23-27); Allen Test Positive; Pt O2 Delivery Device Ventilator
[2018-05-29] MEDS: LACTATED RINGERS 1,000 ML IV SCH ×2 (03:36→18:23)
[2018-05-29] MEDS: niCARdipine INJ 25 MG in SODIUM CHLORIDE 0.9% 240 ML IV PRN ×2 (03:41→18:06)
[2018-05-29 04:06] LABS: Basophils % 0.1 % (0.0-0.8); Hematocrit 23.9 VOL% (35.7-47.0); Hemoglobin 7.5 GM/DL (12.0-16.0); Immature Granulocytes % 1.1 %; Immature Granulocytes Absolute 0.11 #; Lymphocytes % 9.5 % (21.3-54.2); Mean Corpuscular HGB Conc 31.4 GM/DL (32-36); Mean Corpuscular Hemoglobin 27 PG (27-34); Mean Corpuscular Volume 85.4 FL (87-102); Mean Platelet Volume 9.8 FL (9.6-12.0); Monocytes # 0.5 10*3/uL (0.11-0.8); Monocytes % 4.5 % (1.7-12.7); Neutrophils # 8.5 10*3/uL (1.4-7.4); Neutrophils % 84.8 % (38.7-73.9); Platelet Count 196 T/CUMM (130-400); Red Cell Distribution Width 17.3 % (9.3-17.3); White Blood Count 10.1 T/CUMM (4-12)
[2018-05-29 04:34] LABS: Calcium 7.7 MG/DL (8.5-10.1); Osmolality,Calculated 317.1 MOS/KG (273-304); Potassium 3.7 MMOL/L (3.5-5.1)
[2018-05-29] MEDS: ASPIRIN CHEW 81 MG TABLET PO SCH (08:31)
[2018-05-29] MEDS: MULTIVITAMIN (CENTRUM) TABLET PO SCH (08:31)
[2018-05-29] MEDS: ACETAMINOPHEN 325 MG TABLET PO PRN (20:24)
[2018-05-29] MEDS: PROPOFOL 1,000 MG/100 ML BOTTLE IV SCH (20:25)
[2018-05-29] MEDS ORDERED: ERTAPENEM 500 MG in SODIUM CHLORIDE 0.9% 100 ML IV ONE (21:00)
[2018-05-30] MEDS: HYDROCORTISONE 100 MG VIAL IV SCH ×3 (01:41→19:34)
[2018-05-30] MEDS: INSULIN LISPRO 100 UNIT/ML SUBCUT SCH ×4 (01:41→18:49)
[2018-05-30 03:36] LABS: Allen Test Positive; Pt O2 Delivery Device Ventilator
[2018-05-30 03:38] LABS: ABG Base Excess 1.1 MMOL/L (-2.5-2.5); ABG HCO3 25.5 MMOL/L (20-26); ABG PCO2 37.2 MM HG (35-48); ABG PH 7.439 (7.35-7.45); ABG TCO2 23.5 MMOL/L (23-27)
[2018-05-30] MEDS: niCARdipine INJ 25 MG in SODIUM CHLORIDE 0.9% 240 ML IV PRN ×2 (04:06→15:45)
[2018-05-30 04:28] LABS: Basophils % 0.1 % (0.0-0.8); Eosinophils % 0.1 % (0.00-10.9); Hematocrit 26.6 VOL% (35.7-47.0); Hemoglobin 8.3 GM/DL (12.0-16.0); Immature Granulocytes Absolute 0.22 #; Lymphocytes # 0.9 10*3/uL (1.4-4.0); Lymphocytes % 8.2 % (21.3-54.2); Mean Corpuscular HGB Conc 31.2 GM/DL (32-36); Mean Corpuscular Hemoglobin 27 PG (27-34); Mean Corpuscular Volume 87.5 FL (87-102); Mean Platelet Volume 10.2 FL (9.6-12.0); Monocytes # 0.4 10*3/uL (0.11-0.8); Monocytes % 3.6 % (1.7-12.7); Neutrophils # 9.7 10*3/uL (1.4-7.4); Platelet Count 180 T/CUMM (130-400); Red Blood Count 3.04 MC/CUMM (3.8-5.5); Red Cell Distribution Width 17.6 % (9.3-17.3); White Blood Count 11.3 T/CUMM (4-12)
[2018-05-30 04:30] LABS: Calcium 7.8 MG/DL (8.5-10.1); Osmolality,Calculated 317.4 MOS/KG (273-304); Potassium 3.9 MMOL/L (3.5-5.1)
[2018-05-30 04:38] LABS: Prealbumin 26.7 MG/DL (20-40)
[2018-05-30 06:23] LABS: Platelet Estimate Normal
[2018-05-30 06:24] LABS: Anisocytosis 1+; Macrocytosis 1+
[2018-05-30] MEDS ORDERED: GLYCOPYRROLATE 0.4 MG/2 ML VIAL ONE (09:45)
[2018-05-30] MEDS ORDERED: PROPOFOL 200 MG/20 ML VIAL IV ONE (09:50)
[2018-05-30] MEDS ORDERED: LIDOCAINE 2% 5 ML VIAL ONE (09:50)
[2018-05-30] MEDS ORDERED: ceFAZolin 1,000 MG in SYRINGE 1 EACH IV ONE (10:08)
[2018-05-30] MEDS: ASPIRIN CHEW 81 MG TABLET PO SCH (11:28)
[2018-05-30] MEDS: MULTIVITAMIN (CENTRUM) TABLET PO SCH (11:28)
[2018-05-30] MEDS: DEXTROSE 50% 25 GM/50 ML SYRINGE IV PRN (11:55)
[2018-05-30] MEDS: ACETAMINOPHEN 325 MG TABLET PO PRN (14:18)
[2018-05-30] MEDS: LACTATED RINGERS 1,000 ML IV SCH (15:45)
[2018-05-30] MEDS: PROPOFOL 1,000 MG/100 ML BOTTLE IV SCH (20:29)
[2018-05-31] MEDS: INSULIN LISPRO 100 UNIT/ML SUBCUT SCH ×5 (00:18→23:55)
[2018-05-31] MEDS: niCARdipine INJ 25 MG in SODIUM CHLORIDE 0.9% 240 ML IV PRN ×2 (00:57→10:10)
[2018-05-31] MEDS: HYDROCORTISONE 100 MG VIAL IV SCH ×4 (02:02→18:37)
[2018-05-31] MEDS: ASPIRIN CHEW 81 MG TABLET PO SCH (09:07)
[2018-05-31] MEDS: MULTIVITAMIN (CENTRUM) TABLET PO SCH (09:07)
[2018-05-31] MEDS: LACTATED RINGERS 1,000 ML IV SCH (10:30)
[2018-05-31] MEDS: amLODIPine 10 MG TABLET PO SCH (10:30)
[2018-05-31] MEDS: hydrALAZINE 20 MG/1 ML VIAL IV PRN (18:23)
[2018-05-31 18:59] LABS: Amorphous Crystals,Urine Occasional /HPF (Few); Apearance,Urine Slightly Hazy (Clear); Bilirubin,Urine Negative (Negative); Blood, Urine Negative (Negative); Glucose,Urine (UA) 50 mg/dL (Negative); Hyaline Casts,Urine 3 /LPF (0-3); Ketones,Urine Negative (Negative); Mucus,Urine Occasional /LPF (Occasional); Nitrite,Urine Negative (Negative); Protein,Urine 100 MG/DL; RBC,Urine 2 /HPF (0-4); Squamous Epithelial Cell,Urine Occasional /HPF (0-10); Urine Color Yellow (Yellow); Urine Specific Gravity 1.016 (1.001-1.035); Urine Urobilinogen < 2.0 EU/DL (0.2-1.0); WBC,Urine 2 /HPF (0-6)
[2018-06-01] MEDS: HYDROCORTISONE 100 MG VIAL IV SCH ×3 (01:32→21:30)
[2018-06-01 04:20] LABS: Basophils % 0.1 % (0.0-0.8); Eosinophils % 0.3 % (0.00-10.9); Hematocrit 24.2 VOL% (35.7-47.0); Hemoglobin 7.8 GM/DL (12.0-16.0); Immature Granulocytes % 0.9 %; Immature Granulocytes Absolute 0.09 #; Lymphocytes # 0.8 10*3/uL (1.4-4.0); Lymphocytes % 8.5 % (21.3-54.2); Mean Corpuscular HGB Conc 32.2 GM/DL (32-36); Mean Corpuscular Hemoglobin 28 PG (27-34); Mean Corpuscular Volume 86.7 FL (87-102); Mean Platelet Volume 10.5 FL (9.6-12.0); Monocytes # 0.5 10*3/uL (0.11-0.8); Monocytes % 5.5 % (1.7-12.7); Neutrophils # 8.4 10*3/uL (1.4-7.4); Neutrophils % 84.7 % (38.7-73.9); Platelet Count 257 T/CUMM (130-400); Red Blood Count 2.79 MC/CUMM (3.8-5.5); Red Cell Distribution Width 17.7 % (9.3-17.3); White Blood Count 9.9 T/CUMM (4-12)
[2018-06-01] MEDS: hydrALAZINE 20 MG/1 ML VIAL IV PRN (04:42)
[2018-06-01 04:46] LABS: Calcium 7.7 MG/DL (8.5-10.1); Osmolality,Calculated 322.3 MOS/KG (273-304); Potassium 3.5 MMOL/L (3.5-5.1)
[2018-06-01] MEDS: INSULIN LISPRO 100 UNIT/ML SUBCUT SCH ×3 (06:06→18:04)
[2018-06-01] MEDS: ASPIRIN CHEW 81 MG TABLET PO SCH (08:17)
[2018-06-01] MEDS: amLODIPine 10 MG TABLET PO SCH (08:17)
[2018-06-01] MEDS: MULTIVITAMIN (CENTRUM) TABLET PO SCH (08:17)
[2018-06-01] MEDS ORDERED: ATROPINE 1 MG/10 ML SYRINGE IV PRN (15:08)
[2018-06-01] MEDS ORDERED: HYDROCORTISONE 100 MG VIAL IV SCH (15:30)
[2018-06-02] MEDS: INSULIN LISPRO 100 UNIT/ML SUBCUT SCH ×4 (01:24→18:59)
[2018-06-02] MEDS: hydrALAZINE 20 MG/1 ML VIAL IV PRN (02:09)
[2018-06-02 02:27] LABS: Eosinophils # 0.1 10*3/uL (0.0-0.87); Eosinophils % 1.2 % (0.00-10.9); Hematocrit 23.5 VOL% (35.7-47.0); Hemoglobin 7.5 GM/DL (12.0-16.0); Mean Corpuscular HGB Conc 31.9 GM/DL (32-36); Mean Corpuscular Hemoglobin 28 PG (27-34); Mean Corpuscular Volume 87.4 FL (87-102); Mean Platelet Volume 10.1 FL (9.6-12.0); Monocytes # 0.6 10*3/uL (0.11-0.8); Monocytes % 5.8 % (1.7-12.7); Neutrophils # 8.1 10*3/uL (1.4-7.4); Platelet Count 272 T/CUMM (130-400); Red Blood Count 2.69 MC/CUMM (3.8-5.5); Red Cell Distribution Width 17.8 % (9.3-17.3); White Blood Count 9.9 T/CUMM (4-12)
[2018-06-02 02:57] LABS: Calcium 7.7 MG/DL (8.5-10.1); Osmolality,Calculated 320.4 MOS/KG (273-304); Potassium 3.3 MMOL/L (3.5-5.1)
[2018-06-02 02:59] LABS: Prealbumin 22.6 MG/DL (20-40)
[2018-06-02] MEDS: HYDROCORTISONE 100 MG VIAL IV SCH ×2 (09:06→21:55)
[2018-06-02] MEDS: ASPIRIN CHEW 81 MG TABLET PO SCH (09:07)
[2018-06-02] MEDS: amLODIPine 10 MG TABLET PO SCH (09:07)
[2018-06-02] MEDS: MULTIVITAMIN (CENTRUM) TABLET PO SCH (09:07)
[2018-06-02 13:28] LABS: ABG Base Excess 0.2 MMOL/L (-2.5-2.5); ABG HCO3 24.6 MMOL/L (20-26); ABG Oxygen Saturation 98.4 % (95-100); ABG PCO2 39.9 MM HG (35-48); ABG PH 7.403 (7.35-7.45); ABG TCO2 23.4 MMOL/L (23-27); Allen Test Positive
[2018-06-02] MEDS: POTASSIUM CHLORIDE 20 MEQ TABLET PO PRN ×2 (14:28→18:40)
[2018-06-03] MEDS: INSULIN LISPRO 100 UNIT/ML SUBCUT SCH ×4 (00:35→17:25)
[2018-06-03 05:18] LABS: Basophils % 0.1 % (0.0-0.8); Eosinophils # 0.1 10*3/uL (0.0-0.87); Eosinophils % 1.1 % (0.00-10.9); Hematocrit 22.7 VOL% (35.7-47.0); Hemoglobin 7.1 GM/DL (12.0-16.0); Immature Granulocytes % 0.8 %; Immature Granulocytes Absolute 0.06 #; Lymphocytes # 0.7 10*3/uL (1.4-4.0); Lymphocytes % 9.2 % (21.3-54.2); Mean Corpuscular HGB Conc 31.3 GM/DL (32-36); Mean Corpuscular Hemoglobin 27 PG (27-34); Mean Corpuscular Volume 87.6 FL (87-102); Mean Platelet Volume 10.1 FL (9.6-12.0); Monocytes # 0.4 10*3/uL (0.11-0.8); Monocytes % 4.7 % (1.7-12.7); Neutrophils # 6.3 10*3/uL (1.4-7.4); Neutrophils % 84.1 % (38.7-73.9); Platelet Count 285 T/CUMM (130-400); Red Blood Count 2.59 MC/CUMM (3.8-5.5); Red Cell Distribution Width 17.9 % (9.3-17.3); White Blood Count 7.5 T/CUMM (4-12)
[2018-06-03 05:27] LABS: Calcium 7.3 MG/DL (8.5-10.1); Osmolality,Calculated 316.8 MOS/KG (273-304); Potassium 3.9 MMOL/L (3.5-5.1)
[2018-06-03] MEDS: amLODIPine 10 MG TABLET PO SCH (09:56)
[2018-06-03] MEDS: ASPIRIN CHEW 81 MG TABLET PO SCH (09:56)
[2018-06-03] MEDS: MULTIVITAMIN (CENTRUM) TABLET PO SCH (09:56)
[2018-06-03] MEDS: HYDROCORTISONE 100 MG VIAL IV SCH ×2 (09:59→21:32)
[2018-06-03] MEDS ORDERED: TUBERCULIN SKIN TEST 0.1 ML SYRINGE INTRADERM ONE (11:03)
[2018-06-04] MEDS: INSULIN LISPRO 100 UNIT/ML SUBCUT SCH ×5 (02:33→19:05)
[2018-06-04] MEDS: MULTIVITAMIN (CENTRUM) TABLET PO SCH (09:39)
[2018-06-04] MEDS: amLODIPine 10 MG TABLET PO SCH (09:39)
[2018-06-04] MEDS: ASPIRIN CHEW 81 MG TABLET PO SCH (09:39)
[2018-06-04] MEDS: HYDROCORTISONE 100 MG VIAL IV SCH (09:39)
[2018-06-05] MEDS: INSULIN LISPRO 100 UNIT/ML SUBCUT SCH ×4 (01:06→18:15)
[2018-06-05 07:29] LABS: Basophils % 0.3 % (0.0-0.8); Eosinophils # 0.3 10*3/uL (0.0-0.87); Eosinophils % 3.5 % (0.00-10.9); Hematocrit 23.8 VOL% (35.7-47.0); Hemoglobin 7.6 GM/DL (12.0-16.0); Immature Granulocytes % 1.6 %; Immature Granulocytes Absolute 0.12 #; Lymphocytes # 2.1 10*3/uL (1.4-4.0); Lymphocytes % 27.4 % (21.3-54.2); Mean Corpuscular HGB Conc 31.9 GM/DL (32-36); Mean Corpuscular Hemoglobin 28 PG (27-34); Mean Corpuscular Volume 87.8 FL (87-102); Mean Platelet Volume 9.9 FL (9.6-12.0); Monocytes # 0.6 10*3/uL (0.11-0.8); Monocytes % 8.5 % (1.7-12.7); Neutrophils # 4.4 10*3/uL (1.4-7.4); Neutrophils % 58.7 % (38.7-73.9); Platelet Count 276 T/CUMM (130-400); Red Blood Count 2.71 MC/CUMM (3.8-5.5); Red Cell Distribution Width 18.1 % (9.3-17.3); White Blood Count 7.5 T/CUMM (4-12)
[2018-06-05 08:05] LABS: Calcium 7.6 MG/DL (8.5-10.1); Osmolality,Calculated 310.1 MOS/KG (273-304); Potassium 3.4 MMOL/L (3.5-5.1)
[2018-06-05] MEDS: MULTIVITAMIN (CENTRUM) TABLET PO SCH (09:04)
[2018-06-05] MEDS: POTASSIUM CHLORIDE 20 MEQ TABLET PO PRN ×3 (09:04→17:15)
[2018-06-05] MEDS: amLODIPine 10 MG TABLET PO SCH (09:05)
[2018-06-05] MEDS: ASPIRIN CHEW 81 MG TABLET PO SCH (09:05)
[2018-06-06] MEDS: INSULIN LISPRO 100 UNIT/ML SUBCUT SCH ×3 (01:06→13:08)
[2018-06-06 05:43] LABS: Prealbumin 26.9 MG/DL (20-40)
[2018-06-06] MEDS: amLODIPine 10 MG TABLET PO SCH (11:11)
[2018-06-06] MEDS: ASPIRIN CHEW 81 MG TABLET PO SCH (11:11)
[2018-06-06] MEDS: MULTIVITAMIN (CENTRUM) TABLET PO SCH (11:11)
[2018-06-06] MEDS: ACETAMINOPHEN 325 MG TABLET PO PRN (11:30)
[2018-06-06 12:12] VITALS: BP 129/79
== END 2018-06-06 13:21 | DRG 870 ==
LOC: SUATTDRO 23:45 → N.ICU 23:45 → N.5E 05-21 14:48 → N.2E 05-23 18:02 → N.CC 05-23 20:56 → N.TELES 06-01 18:44 → N.TELEN 06-01 18:44
PROVIDERS: ADMIT Internal Medicine; ATTEND Emergency Medicine
PROC: EGDWPEG (ICD-10-PCS; 2018-05-30 09:05)

== ENCOUNTER 2018-06-07 09:40 | Observation (INO) ==
[2018-06-07 11:53] LABS: Basophils % 0.3 % (0.0-0.8); Eosinophils # 0.2 10*3/uL (0.0-0.87); Eosinophils % 2.5 % (0.00-10.9); Hematocrit 23.8 VOL% (35.7-47.0); Hemoglobin 7.4 GM/DL (12.0-16.0); Immature Granulocytes % 1.6 %; Mean Corpuscular HGB Conc 31.1 GM/DL (32-36); Mean Corpuscular Hemoglobin 28 PG (27-34); Mean Corpuscular Volume 90.5 FL (87-102); Monocytes # 0.6 10*3/uL (0.11-0.8); Monocytes % 9.3 % (1.7-12.7); Neutrophils # 4.2 10*3/uL (1.4-7.4); Neutrophils % 69.3 % (38.7-73.9); Platelet Count 278 T/CUMM (130-400); Red Blood Count 2.63 MC/CUMM (3.8-5.5); Red Cell Distribution Width 18.6 % (9.3-17.3); White Blood Count 6.1 T/CUMM (4-12)
[2018-06-07 12:15] LABS: Alanine Aminotransferase 79 U/L (13-56); Alkaline Phosphatase 147 U/L (45-117); Aspartate Amino Transferase 48 U/L (0-37); Bilirubin,Total < 0.39 MG/DL (0.2-1.0); Blood Urea Nitrogen 90 MG/DL (7-18); Calcium 7.8 MG/DL (8.5-10.1); Glucose 89 MG/DL (74-106); Osmolality,Calculated 305.4 MOS/KG (273-304); Potassium 3.9 MMOL/L (3.5-5.1); Sodium 140 MMOL/L (136-145); Total Protein 5.4 G/DL (6.4-8.3)
[2018-06-07] MEDS ORDERED: ACETAMINOPHEN 325 MG TABLET PO PRN (12:45)
[2018-06-07] MEDS ORDERED: ENOXAPARIN 30 MG/0.3 ML SYRINGE SUBCUT SCH ×2 (13:00)
[2018-06-07] MEDS ORDERED: SODIUM CHLORIDE 0.9% 1,000 ML IV PRN (14:48)
[2018-06-07] MEDS ORDERED: DEXTROSE 50% 25 GM/50 ML SYRINGE IV PRN (16:04)
[2018-06-07] MEDS ORDERED: GLUCAGON 1 MG VIAL IM PRN (16:04)
[2018-06-07] MEDS: INSULIN REGULAR 100 UNIT/ML SUBCUT SCH (18:35)
[2018-06-07] MEDS ORDERED: FAMOTIDINE 20 MG TABLET PEG SCH (21:00)
[2018-06-07] MEDS: PANTOPRAZOLE 40 MG VIAL IV SCH (21:16)
[2018-06-08] MEDS: INSULIN REGULAR 100 UNIT/ML SUBCUT SCH ×2 (00:21→05:53)
[2018-06-08 04:29] LABS: Hematocrit 27.1 VOL% (35.7-47.0); Hemoglobin 8.6 GM/DL (12.0-16.0)
[2018-06-08 05:05] LABS: Alanine Aminotransferase 67 U/L (13-56); Albumin 2.1 G/DL (3.4-5.0); Alkaline Phosphatase 121 U/L (45-117); Aspartate Amino Transferase 36 U/L (0-37); Bilirubin,Total < 0.39 MG/DL (0.2-1.0); Blood Urea Nitrogen 87 MG/DL (7-18); Calcium 7.9 MG/DL (8.5-10.1); Glucose 116 MG/DL (74-106); Osmolality,Calculated 313.8 MOS/KG (273-304); Potassium 4.1 MMOL/L (3.5-5.1); Sodium 144 MMOL/L (136-145); Total Protein 5.3 G/DL (6.4-8.3)
[2018-06-08 05:06] LABS: Prealbumin 25.2 MG/DL (20-40)
[2018-06-08 06:35] LABS: Basophils % 0.4 % (0.0-0.8); Eosinophils # 0.1 10*3/uL (0.0-0.87); Eosinophils % 2.5 % (0.00-10.9); Hematocrit 28.1 VOL% (35.7-47.0); Hemoglobin 8.8 GM/DL (12.0-16.0); Immature Granulocytes % 1.2 %; Immature Granulocytes Absolute 0.06 #; Lymphocytes # 0.9 10*3/uL (1.4-4.0); Lymphocytes % 17.5 % (21.3-54.2); Mean Corpuscular HGB Conc 31.3 GM/DL (32-36); Mean Corpuscular Hemoglobin 28 PG (27-34); Mean Corpuscular Volume 88.6 FL (87-102); Mean Platelet Volume 10.2 FL (9.6-12.0); Monocytes # 0.5 10*3/uL (0.11-0.8); Monocytes % 9.2 % (1.7-12.7); Neutrophils # 3.6 10*3/uL (1.4-7.4); Neutrophils % 69.2 % (38.7-73.9); Platelet Count 243 T/CUMM (130-400); Red Blood Count 3.17 MC/CUMM (3.8-5.5); Red Cell Distribution Width 17.8 % (9.3-17.3); White Blood Count 5.2 T/CUMM (4-12)
[2018-06-08 08:16] VITALS: BP 166/100
[2018-06-08] MEDS ORDERED: FUROSEMIDE 20 MG TABLET PEG SCH (09:00)
[2018-06-08] MEDS ORDERED: MULTIVITAMIN (CENTRUM) TABLET PEG SCH (09:00)
[2018-06-08] MEDS ORDERED: COLCHICINE 0.3 MG PEG SCH (09:00)
[2018-06-08] MEDS: PANTOPRAZOLE 40 MG VIAL IV SCH (10:26)
== END 2018-06-08 11:36 ==
LOC: EDUNIT# → EDBD → N.4E 09:40 → N.ED 09:40 → N.4E 13:35 → SUATTDRO 14:15
PROVIDERS: ADMIT Internal Medicine; ATTEND Emergency Medicine

== ENCOUNTER 2018-10-02 16:10 | Inpatient (IN) ==
[2018-10-02 17:21] LABS: Basophils # 0.1 10*3/uL (0.0-0.2); Basophils % 0.9 % (0.0-0.8); Eosinophils # 0.4 10*3/uL (0.0-0.87); Eosinophils % 6.1 % (0.00-10.9); Hematocrit 30.6 VOL% (35.7-47.0); Hemoglobin 9.2 GM/DL (12.0-16.0); Immature Granulocytes % 0.6 %; Immature Granulocytes Absolute 0.04 #; Lymphocytes # 1.9 10*3/uL (1.4-4.0); Lymphocytes % 28.6 % (21.3-54.2); Mean Corpuscular HGB Conc 30.1 GM/DL (32-36); Mean Corpuscular Volume 105.5 FL (87-102); Mean Platelet Volume 9.6 FL (9.6-12.0); Monocytes % 11.6 % (1.7-12.7); Neutrophils % 52.2 % (38.7-73.9); Platelet Count 204 T/CUMM (130-400); Red Cell Distribution Width 14.7 % (9.3-17.3); White Blood Count 6.6 T/CUMM (4-12)
[2018-10-02 17:41] LABS: Calcium 9.4 MG/DL (8.5-10.1); Osmolality,Calculated 342.3 MOS/KG (273-304)
[2018-10-02] MEDS ORDERED: SODIUM POLYSTYRENE SULFATE 15 GM/60 ML BOTTLE PO STA (17:51)
[2018-10-02] MEDS ORDERED: ACETAMINOPHEN 325 MG TABLET PO PRN (18:57)
[2018-10-02] MEDS ORDERED: ONDANSETRON 4 MG/2 ML VIAL IV PRN (18:57)
[2018-10-02] MEDS ORDERED: ACETAMINOPHEN 325 MG TABLET PEG PRN (19:08)
[2018-10-02] MEDS ORDERED: SODIUM POLYSTYRENE SULFATE 15 GM/60 ML BOTTLE PO PRN (19:12)
[2018-10-02] MEDS: DEXTROSE 5% NACL 0.45% 1,000 ML IV SCH (21:56)
[2018-10-02] MEDS: FAMOTIDINE 20 MG TABLET PEG SCH (21:56)
[2018-10-02] MEDS: HEPARIN 5,000 UNIT/1 ML VIAL SUBCUT SCH (21:57)
[2018-10-03 00:22] LABS: Apearance,Urine Slightly Hazy (Clear); Bacteria,Urine Occasional /HPF (Few); Bilirubin,Urine Negative (Negative); Blood, Urine Moderate mg/dL (Negative); Glucose,Urine (UA) Negative (Negative); Hyaline Casts,Urine 11 /LPF (0-3); Ketones,Urine Negative (Negative); Mucus,Urine Occasional /LPF (Occasional); Nitrite,Urine Negative (Negative); Protein,Urine >=500 MG/DL; RBC,Urine 42 /HPF (0-4); Squamous Epithelial Cell,Urine Occasional /HPF (0-10); Transitional Epi Cells,Urine Occasional /HPF (<1); Urine Color Yellow (Yellow); Urine Specific Gravity 1.015 (1.001-1.035); Urine Urobilinogen < 2.0 EU/DL (0.2-1.0); WBC,Urine 6 /HPF (0-6)
[2018-10-03 05:49] LABS: Basophils # 0.1 10*3/uL (0.0-0.2); Basophils % 0.7 % (0.0-0.8); Eosinophils # 0.4 10*3/uL (0.0-0.87); Eosinophils % 4.8 % (0.00-10.9); Hematocrit 26.7 VOL% (35.7-47.0); Immature Granulocytes % 0.6 %; Immature Granulocytes Absolute 0.04 #; Lymphocytes # 1.7 10*3/uL (1.4-4.0); Lymphocytes % 23.3 % (21.3-54.2); Mean Corpuscular Volume 104.7 FL (87-102); Mean Platelet Volume 9.8 FL (9.6-12.0); Neutrophils % 59.6 % (38.7-73.9); Platelet Count 188 T/CUMM (130-400); Red Blood Count 2.55 MC/CUMM (3.8-5.5); Red Cell Distribution Width 14.6 % (9.3-17.3); White Blood Count 7.3 T/CUMM (4-12)
[2018-10-03 06:07] LABS: Alanine Aminotransferase 64 U/L (13-56); Albumin 2.5 G/DL (3.4-5.0); Alkaline Phosphatase 153 U/L (45-117); Aspartate Amino Transferase 33 U/L (0-37); Bilirubin,Total < 0.39 MG/DL (0.2-1.0); Blood Urea Nitrogen 139 MG/DL (7-18); Calcium 8.8 MG/DL (8.5-10.1); Glucose 134 MG/DL (74-106); Osmolality,Calculated 342.1 MOS/KG (273-304); Total Protein 6.6 G/DL (6.4-8.3)
[2018-10-03] MEDS: DEXTROSE 5% NACL 0.45% 1,000 ML IV SCH (07:51)
[2018-10-03] MEDS ORDERED: COLCHICINE 0.3 MG PEG SCH (09:00)
[2018-10-03] MEDS ORDERED: GLUCAGON 1 MG VIAL IM PRN (09:14)
[2018-10-03] MEDS ORDERED: DEXTROSE 50% 25 GM/50 ML VIAL IV PRN (09:14)
[2018-10-03] MEDS: HEPARIN 5,000 UNIT/1 ML VIAL SUBCUT SCH ×2 (10:38→20:16)
[2018-10-03] MEDS: ASPIRIN CHEW 81 MG TABLET PO SCH (10:38)
[2018-10-03] MEDS: MULTIVITAMIN LIQUID (CENTRUM) 60 ML BOTTLE PEG SCH (10:40)
[2018-10-03] MEDS: INSULIN REGULAR 100 UNIT/ML SUBCUT SCH ×2 (13:36→18:40)
[2018-10-03] MEDS: DEXTROSE 5% 1,000 ML IV SCH ×2 (13:39→23:19)
[2018-10-03] MEDS: FAMOTIDINE 20 MG TABLET PEG SCH (20:16)
[2018-10-04] MEDS: INSULIN REGULAR 100 UNIT/ML SUBCUT SCH ×4 (00:30→18:32)
[2018-10-04 04:58] LABS: Basophils % 0.7 % (0.0-0.8); Eosinophils # 0.3 10*3/uL (0.0-0.87); Eosinophils % 5.7 % (0.00-10.9); Hematocrit 26.1 VOL% (35.7-47.0); Hemoglobin 7.8 GM/DL (12.0-16.0); Immature Granulocytes % 0.5 %; Immature Granulocytes Absolute 0.03 #; Lymphocytes # 1.8 10*3/uL (1.4-4.0); Lymphocytes % 33.5 % (21.3-54.2); Mean Corpuscular HGB Conc 29.9 GM/DL (32-36); Mean Corpuscular Volume 106.1 FL (87-102); Monocytes % 11.5 % (1.7-12.7); Neutrophils % 48.1 % (38.7-73.9); Platelet Count 171 T/CUMM (130-400); Red Blood Count 2.46 MC/CUMM (3.8-5.5); Red Cell Distribution Width 14.6 % (9.3-17.3); White Blood Count 5.5 T/CUMM (4-12)
[2018-10-04 05:19] LABS: Calcium 8.4 MG/DL (8.5-10.1); Osmolality,Calculated 323.3 MOS/KG (273-304); Prealbumin 27.3 MG/DL (20-40)
[2018-10-04] MEDS: DEXTROSE 5% 1,000 ML IV SCH ×2 (08:45→09:03)
[2018-10-04] MEDS: MULTIVITAMIN LIQUID (CENTRUM) 60 ML BOTTLE PEG SCH (08:46)
[2018-10-04] MEDS: ASPIRIN CHEW 81 MG TABLET PO SCH (08:47)
[2018-10-04] MEDS: HEPARIN 5,000 UNIT/1 ML VIAL SUBCUT SCH ×2 (08:47→21:17)
[2018-10-04 13:00] LABS: Ferritin 534.4 ng/ml (8-252)
[2018-10-04 14:07] LABS: Folate > 24.0 NG/ML (5.4-24.0); Vitamin B12 > 2000 PG/ML (211-911)
[2018-10-04] MEDS: FAMOTIDINE 20 MG TABLET PEG SCH (21:17)
[2018-10-05] MEDS: INSULIN REGULAR 100 UNIT/ML SUBCUT SCH ×3 (01:21→11:14)
[2018-10-05] MEDS: DEXTROSE 5% 1,000 ML IV SCH (01:43)
[2018-10-05 05:45] LABS: Calcium 8.3 MG/DL (8.5-10.1)
[2018-10-05] MEDS: HEPARIN 5,000 UNIT/1 ML VIAL SUBCUT SCH (09:26)
[2018-10-05] MEDS: MULTIVITAMIN LIQUID (CENTRUM) 60 ML BOTTLE PEG SCH (09:27)
[2018-10-05] MEDS: ASPIRIN CHEW 81 MG TABLET PO SCH (09:27)
[2018-10-05 11:34] VITALS: BP 133/74
== END 2018-10-05 12:00 | DRG 682 ==
LOC: EDBD → EDUNIT# → N.ED 16:10 → N.EDINP 18:57 → SUATTDRO 18:57 → N.2E 19:23
PROVIDERS: ADMIT Internal Medicine; ATTEND Family Medicine

== ENCOUNTER 2018-10-20 12:33 | Inpatient (IN) ==
[2018-10-20 14:14] LABS: Apearance,Urine CLEAR (Clear); Bacteria,Urine Occasional /HPF (Few); Bilirubin,Urine Negative (Negative); Blood, Urine Negative (Negative); Glucose,Urine (UA) Negative (Negative); Hyaline Casts,Urine 1 /LPF (0-3); Ketones,Urine Negative (Negative); Nitrite,Urine Negative (Negative); Protein,Urine 30 MG/DL; RBC,Urine <1 /HPF (0-4); Urine Color Straw (Yellow); Urine Specific Gravity 1.004 (1.001-1.035); Urine Urobilinogen < 2.0 EU/DL (0.2-1.0); WBC,Urine 1 /HPF (0-6)
[2018-10-20 14:31] LABS: Basophils % 0.5 % (0.0-0.8); Eosinophils # 0.4 10*3/uL (0.0-0.87); Eosinophils % 6.7 % (0.00-10.9); Hematocrit 21.4 VOL% (35.7-47.0); Immature Granulocytes % 1.3 %; Immature Granulocytes Absolute 0.08 #; Lymphocytes % 32.5 % (21.3-54.2); Mean Corpuscular HGB Conc 32.7 GM/DL (32-36); Mean Corpuscular Volume 97.7 FL (87-102); Mean Platelet Volume 8.8 FL (9.6-12.0); Monocytes % 9.9 % (1.7-12.7); Neutrophils % 49.1 % (38.7-73.9); Platelet Count 184 T/CUMM (130-400); Red Blood Count 2.19 MC/CUMM (3.8-5.5); Red Cell Distribution Width 13.6 % (9.3-17.3); White Blood Count 6.3 T/CUMM (4-12)
[2018-10-20 14:51] LABS: Alanine Aminotransferase 97 U/L (13-56); Albumin 2.6 G/DL (3.4-5.0); Alkaline Phosphatase 409 U/L (45-117); Aspartate Amino Transferase 54 U/L (0-37); Bilirubin,Total < 0.39 MG/DL (0.2-1.0); Blood Urea Nitrogen 155 MG/DL (7-18); Calcium 8.6 MG/DL (8.5-10.1); Glucose 87 MG/DL (74-106); Osmolality,Calculated 309.8 MOS/KG (273-304); Total Protein 6.7 G/DL (6.4-8.3)
[2018-10-20] MEDS ORDERED: ONDANSETRON 4 MG/2 ML VIAL IV PRN (16:27)
[2018-10-20] MEDS ORDERED: SODIUM CHLORIDE 0.9% 1,000 ML IV PRN (16:27)
[2018-10-20] MEDS ORDERED: ACETAMINOPHEN 325 MG TABLET PEG PRN (17:59)
[2018-10-20] MEDS: FERROUS SULFATE 325 MG TABLET PO SCH (18:52)
[2018-10-20] MEDS: PANTOPRAZOLE 40 MG VIAL IV SCH (21:37)
[2018-10-20 22:44] LABS: Hematocrit 25.9 VOL% (35.7-47.0)
[2018-10-20 22:46] LABS: Hemoglobin 8.5 GM/DL (12.0-16.0)
[2018-10-20] MEDS ORDERED: FUROSEMIDE 20 MG/2 ML VIAL IV STA (22:51)
[2018-10-21 06:37] LABS: Hematocrit 29.1 VOL% (35.7-47.0); Hemoglobin 9.7 GM/DL (12.0-16.0)
[2018-10-21 07:16] LABS: Basophils % 0.6 % (0.0-0.8); Eosinophils # 0.3 10*3/uL (0.0-0.87); Eosinophils % 5.5 % (0.00-10.9); Hematocrit 28.8 VOL% (35.7-47.0); Hemoglobin 9.6 GM/DL (12.0-16.0); Immature Granulocytes % 0.8 %; Immature Granulocytes Absolute 0.04 #; Lymphocytes % 18.7 % (21.3-54.2); Mean Corpuscular HGB Conc 33.3 GM/DL (32-36); Mean Corpuscular Volume 94.1 FL (87-102); Mean Platelet Volume 8.8 FL (9.6-12.0); Neutrophils % 64.4 % (38.7-73.9); Platelet Count 159 T/CUMM (130-400); Red Blood Count 3.06 MC/CUMM (3.8-5.5); Red Cell Distribution Width 15.5 % (9.3-17.3); White Blood Count 5.1 T/CUMM (4-12)
[2018-10-21 07:37] LABS: Alanine Aminotransferase 86 U/L (13-56); Albumin 2.5 G/DL (3.4-5.0); Alkaline Phosphatase 282 U/L (45-117); Aspartate Amino Transferase 42 U/L (0-37); Bilirubin,Total < 0.39 MG/DL (0.2-1.0); Blood Urea Nitrogen 157 MG/DL (7-18); Calcium 8.5 MG/DL (8.5-10.1); Glucose 107 MG/DL (74-106); Osmolality,Calculated 319.2 MOS/KG (273-304); Total Protein 6.5 G/DL (6.4-8.3)
[2018-10-21] MEDS ORDERED: COLCHICINE 0.3 MG PEG SCH (09:00)
[2018-10-21] MEDS: FERROUS SULFATE 325 MG TABLET PO SCH ×2 (09:03→18:02)
[2018-10-21] MEDS: PANTOPRAZOLE 40 MG VIAL IV SCH ×2 (09:03→20:37)
[2018-10-21] MEDS: FUROSEMIDE 20 MG TABLET PEG SCH (09:03)
[2018-10-21 11:03] LABS: Hematocrit 28.6 VOL% (35.7-47.0); Hemoglobin 9.4 GM/DL (12.0-16.0)
[2018-10-21 17:14] LABS: Hematocrit 29.7 VOL% (35.7-47.0); Hemoglobin 9.8 GM/DL (12.0-16.0)
[2018-10-22 05:00] LABS: Basophils % 0.5 % (0.0-0.8); Eosinophils # 0.3 10*3/uL (0.0-0.87); Eosinophils % 4.9 % (0.00-10.9); Hematocrit 29.5 VOL% (35.7-47.0); Hemoglobin 9.7 GM/DL (12.0-16.0); Immature Granulocytes % 1.1 %; Immature Granulocytes Absolute 0.07 #; Lymphocytes # 1.4 10*3/uL (1.4-4.0); Lymphocytes % 22.6 % (21.3-54.2); Mean Corpuscular HGB Conc 32.9 GM/DL (32-36); Mean Corpuscular Volume 94.2 FL (87-102); Monocytes % 12.5 % (1.7-12.7); Neutrophils % 58.4 % (38.7-73.9); Platelet Count 162 T/CUMM (130-400); Red Blood Count 3.13 MC/CUMM (3.8-5.5); Red Cell Distribution Width 15.3 % (9.3-17.3); White Blood Count 6.3 T/CUMM (4-12)
[2018-10-22 05:21] LABS: Albumin 2.6 G/DL (3.4-5.0); Bilirubin,Total 0.7 MG/DL (0.2-1.0); Calcium 9.4 MG/DL (8.5-10.1); Osmolality,Calculated 323.7 MOS/KG (273-304); Total Protein 6.6 G/DL (6.4-8.3)
[2018-10-22] MEDS: FUROSEMIDE 20 MG TABLET PEG SCH (09:04)
[2018-10-22] MEDS: FERROUS SULFATE 325 MG TABLET PO SCH (09:04)
[2018-10-22] MEDS: PANTOPRAZOLE 40 MG VIAL IV SCH (09:05)
[2018-10-22 11:52] VITALS: BP 128/65
== END 2018-10-22 15:12 | DRG 292 ==
LOC: EDUNIT# → EDBD → N.ED 12:33 → N.EDINP 16:27 → N.2E 17:28
PROVIDERS: ADMIT Internal Medicine; ATTEND Internal Medicine

== ENCOUNTER 2018-12-05 14:46 | Inpatient (IN) ==
[2018-12-05] MEDS ORDERED: ACETAMINOPHEN 325 MG TABLET PO PRN (15:43)
[2018-12-05] MEDS ORDERED: ONDANSETRON 4 MG/2 ML VIAL IV PRN (15:43)
[2018-12-05 15:45] LABS: Basophils % 0.2 % (0.0-0.8); Eosinophils # 0.5 10*3/uL (0.0-0.87); Eosinophils % 10.3 % (0.00-10.9); Hematocrit 18.8 VOL% (35.7-47.0); Immature Granulocytes % 0.5 %; Immature Granulocytes Absolute 0.02 #; Lymphocytes # 1.2 10*3/uL (1.4-4.0); Lymphocytes % 27.2 % (21.3-54.2); Mean Corpuscular HGB Conc 31.4 GM/DL (32-36); Mean Corpuscular Volume 99.5 FL (87-102); Mean Platelet Volume 9.5 FL (9.6-12.0); Monocytes % 10.3 % (1.7-12.7); NRBC # 0.02 10*3/uL; Neutrophils % 51.5 % (38.7-73.9); Platelet Count 170 T/CUMM (130-400); Red Blood Count 1.89 MC/CUMM (3.8-5.5); Red Cell Distribution Width 16.1 % (9.3-17.3); White Blood Count 4.4 T/CUMM (4-12)
[2018-12-05] MEDS ORDERED: SODIUM CHLORIDE 0.9% 1,000 ML IV PRN (15:48)
[2018-12-05 15:54] LABS: INR 0.9; PT Patient Result 10.3 SECS (9.6-12.2); Partial Thromboplastin Time 24.1 SECS (20.8-36.0)
[2018-12-05 16:01] LABS: Hemoglobin 5.9 GM/DL (12.0-16.0)
[2018-12-05 16:03] LABS: Alanine Aminotransferase 158 U/L (13-56); Albumin 2.9 G/DL (3.4-5.0); Alkaline Phosphatase 403 U/L (45-117); Aspartate Amino Transferase 84 U/L (0-37); Bilirubin,Total < 0.39 MG/DL (0.2-1.0); Blood Urea Nitrogen 229 MG/DL (7-18); Calcium 9.5 MG/DL (8.5-10.1); Estimated Glom Filtration Rate 12 ML/MIN; Glucose 105 MG/DL (74-106); Osmolality,Calculated 353.5 MOS/KG (273-304); Total Protein 6.8 G/DL (6.4-8.3)
[2018-12-05 16:26] LABS: Risk Ratio 1.71
[2018-12-05 16:27] LABS: Thyroid Stimulating Hormone 4.86 uIU/ml (0.358-3.74)
[2018-12-05 17:11] LABS: Hematocrit 19.3 VOL% (35.7-47.0)
[2018-12-05 17:15] LABS: Hemoglobin 5.8 GM/DL (12.0-16.0)
[2018-12-05 17:16] LABS: PT Patient Result 10.6 SECS (9.6-12.2); Partial Thromboplastin Time 25.3 SECS (20.8-36.0)
[2018-12-05] MEDS: SODIUM CHLORIDE 0.9% 1,000 ML IV SCH (19:00)
[2018-12-05] MEDS: PANTOPRAZOLE 40 MG VIAL IV SCH (21:30)
[2018-12-06 01:14] LABS: Apearance,Urine CLOUDY (Clear); Bacteria,Urine Many /HPF (Few); Bilirubin,Urine Negative (Negative); Blood, Urine Large mg/dL (Negative); Glucose,Urine (UA) Negative (Negative); Ketones,Urine Negative (Negative); Mucus,Urine Occasional /LPF (Occasional); Nitrite,Urine Positive (Negative); Protein,Urine 100 MG/DL; RBC,Urine 97 /HPF (0-4); Urine Color Yellow (Yellow); Urine Specific Gravity 1.013 (1.001-1.035); Urine Urobilinogen < 2.0 EU/DL (0.2-1.0); WBC,Urine 107 /HPF (0-6)
[2018-12-06] MEDS: SODIUM CHLORIDE 0.9% 1,000 ML IV SCH ×3 (02:17→18:53)
[2018-12-06] MEDS: MEROPENEM 500 MG in SODIUM CHLORIDE 0.9% 100 ML IV SCH ×2 (02:35→14:45)
[2018-12-06 05:38] LABS: Calcium 8.9 MG/DL (8.5-10.1); Osmolality,Calculated 353.5 MOS/KG (273-304)
[2018-12-06 05:41] LABS: Basophils % 0.3 % (0.0-0.8); Eosinophils # 0.3 10*3/uL (0.0-0.87); Eosinophils % 7.9 % (0.00-10.9); Hematocrit 29.5 VOL% (35.7-47.0); Hemoglobin 9.7 GM/DL (12.0-16.0); Immature Granulocytes % 0.5 %; Immature Granulocytes Absolute 0.02 #; Lymphocytes # 0.9 10*3/uL (1.4-4.0); Lymphocytes % 23.7 % (21.3-54.2); Mean Corpuscular HGB Conc 32.9 GM/DL (32-36); Mean Corpuscular Volume 93.4 FL (87-102); Mean Platelet Volume 9.5 FL (9.6-12.0); Monocytes % 10.5 % (1.7-12.7); Neutrophils % 57.1 % (38.7-73.9); Platelet Count 126 T/CUMM (130-400); Red Blood Count 3.16 MC/CUMM (3.8-5.5); Red Cell Distribution Width 15.7 % (9.3-17.3); White Blood Count 3.8 T/CUMM (4-12)
[2018-12-06] MEDS: PANTOPRAZOLE 40 MG VIAL IV SCH ×2 (08:53→23:41)
[2018-12-06 10:45] LABS: Hematocrit 30.7 VOL% (35.7-47.0); Hemoglobin 10.2 GM/DL (12.0-16.0)
[2018-12-06] MEDS: FUROSEMIDE 20 MG TABLET PEG SCH (11:02)
[2018-12-06] MEDS ORDERED: BISACODYL 5 MG TABLET PO ONE (12:00)
[2018-12-06] MEDS ORDERED: GLUCAGON 1 MG VIAL IM PRN (13:07)
[2018-12-06] MEDS ORDERED: DEXTROSE 50% 25 GM/50 ML VIAL IV PRN (13:07)
[2018-12-06] MEDS ORDERED: POLYETHYLENE GLYCOL POWDER 255 GM BOTTLE PER TUBE ONE (15:00)
[2018-12-06] MEDS: INSULIN REGULAR 100 UNIT/ML SUBCUT SCH ×2 (18:54→23:19)
[2018-12-07] MEDS: MEROPENEM 500 MG in SODIUM CHLORIDE 0.9% 100 ML IV SCH ×2 (02:01→16:12)
[2018-12-07] MEDS: INSULIN REGULAR 100 UNIT/ML SUBCUT SCH ×3 (05:22→18:07)
[2018-12-07 06:08] LABS: Basophils % 0.6 % (0.0-0.8); Eosinophils # 0.3 10*3/uL (0.0-0.87); Eosinophils % 8.7 % (0.00-10.9); Hematocrit 30.8 VOL% (35.7-47.0); Hemoglobin 10.1 GM/DL (12.0-16.0); Immature Granulocytes % 0.6 %; Immature Granulocytes Absolute 0.02 #; Lymphocytes # 0.8 10*3/uL (1.4-4.0); Lymphocytes % 22.7 % (21.3-54.2); Mean Corpuscular HGB Conc 32.8 GM/DL (32-36); Mean Corpuscular Volume 94.2 FL (87-102); Mean Platelet Volume 9.1 FL (9.6-12.0); Monocytes % 13.7 % (1.7-12.7); Neutrophils % 53.7 % (38.7-73.9); Platelet Count 139 T/CUMM (130-400); Red Blood Count 3.27 MC/CUMM (3.8-5.5); Red Cell Distribution Width 16.3 % (9.3-17.3); White Blood Count 3.4 T/CUMM (4-12)
[2018-12-07 06:14] LABS: PT Patient Result 11.1 SECS (9.6-12.2)
[2018-12-07] MEDS: SODIUM CHLORIDE 0.9% 1,000 ML IV SCH ×3 (06:32→21:51)
[2018-12-07 06:47] LABS: Calcium 8.7 MG/DL (8.5-10.1)
[2018-12-07 07:01] LABS: Prealbumin 30.1 MG/DL (20-40)
[2018-12-07] MEDS ORDERED: POLYETHYLENE GLYCOL POWDER 255 GM BOTTLE PER TUBE ONE (07:33)
[2018-12-07] MEDS ORDERED: LACTATED RINGERS 1,000 ML IV SCH (08:00)
[2018-12-07] MEDS: FUROSEMIDE 20 MG TABLET PEG SCH (08:53)
[2018-12-07] MEDS: PANTOPRAZOLE 40 MG VIAL IV SCH ×2 (08:53→21:48)
[2018-12-08] MEDS: MEROPENEM 500 MG in SODIUM CHLORIDE 0.9% 100 ML IV SCH (03:29)
[2018-12-08 05:12] LABS: Basophils % 0.6 % (0.0-0.8); Eosinophils # 0.3 10*3/uL (0.0-0.87); Eosinophils % 9.1 % (0.00-10.9); Hematocrit 31.2 VOL% (35.7-47.0); Hemoglobin 9.9 GM/DL (12.0-16.0); Immature Granulocytes % 0.6 %; Immature Granulocytes Absolute 0.02 #; Lymphocytes # 0.9 10*3/uL (1.4-4.0); Lymphocytes % 25.9 % (21.3-54.2); Mean Corpuscular HGB Conc 31.7 GM/DL (32-36); Mean Corpuscular Volume 94.8 FL (87-102); Mean Platelet Volume 8.9 FL (9.6-12.0); Monocytes % 11.3 % (1.7-12.7); Neutrophils % 52.5 % (38.7-73.9); Platelet Count 120 T/CUMM (130-400); Red Blood Count 3.29 MC/CUMM (3.8-5.5); Red Cell Distribution Width 16.2 % (9.3-17.3); White Blood Count 3.6 T/CUMM (4-12)
[2018-12-08 05:39] LABS: Calcium 9.1 MG/DL (8.5-10.1); Osmolality,Calculated 351.1 MOS/KG (273-304)
[2018-12-08] MEDS: INSULIN REGULAR 100 UNIT/ML SUBCUT SCH ×4 (06:53→18:13)
[2018-12-08] MEDS: FUROSEMIDE 20 MG TABLET PEG SCH (08:57)
[2018-12-08] MEDS: SODIUM CHLORIDE 0.9% 1,000 ML IV SCH (08:57)
[2018-12-08] MEDS: PANTOPRAZOLE 40 MG VIAL IV SCH ×2 (08:57→21:19)
[2018-12-08] MEDS ORDERED: POLYETHYLENE GLYCOL POWDER 255 GM BOTTLE PO ONE (11:43)
[2018-12-08] MEDS: DEXTROSE 5% NACL 0.45% 1,000 ML IV SCH (13:19)
[2018-12-08] MEDS ORDERED: ACETAMINOPHEN 325 MG TABLET PO PRN (14:14)
[2018-12-08] MEDS ORDERED: KETOROLAC 15 MG/1 ML VIAL IV PRN (14:39)
[2018-12-09 04:46] LABS: Basophils % 0.5 % (0.0-0.8); Eosinophils # 0.4 10*3/uL (0.0-0.87); Eosinophils % 10.2 % (0.00-10.9); Hematocrit 31.5 VOL% (35.7-47.0); Immature Granulocytes % 0.3 %; Immature Granulocytes Absolute 0.01 #; Lymphocytes # 0.9 10*3/uL (1.4-4.0); Mean Corpuscular HGB Conc 31.7 GM/DL (32-36); Mean Corpuscular Volume 95.5 FL (87-102); Mean Platelet Volume 9.2 FL (9.6-12.0); Monocytes % 11.5 % (1.7-12.7); Neutrophils % 53.5 % (38.7-73.9); Platelet Count 143 T/CUMM (130-400); Red Cell Distribution Width 16.1 % (9.3-17.3); White Blood Count 3.8 T/CUMM (4-12)
[2018-12-09 04:57] LABS: PT Patient Result 11.3 SECS (9.6-12.2)
[2018-12-09 05:04] LABS: Calcium 9.4 MG/DL (8.5-10.1); Osmolality,Calculated 341.3 MOS/KG (273-304)
[2018-12-09] MEDS: INSULIN REGULAR 100 UNIT/ML SUBCUT SCH ×4 (06:53→19:16)
[2018-12-09] MEDS: PANTOPRAZOLE 40 MG VIAL IV SCH ×2 (08:48→21:16)
[2018-12-09] MEDS ORDERED: LIDOCAINE 2% 5 ML VIAL ONE (09:00)
[2018-12-09] MEDS ORDERED: PROPOFOL 200 MG/20 ML VIAL IV ONE (09:00)
[2018-12-09] MEDS: DEXTROSE 5% NACL 0.45% 1,000 ML IV SCH (13:41)
[2018-12-10] MEDS: INSULIN REGULAR 100 UNIT/ML SUBCUT SCH ×4 (01:38→17:35)
[2018-12-10 08:41] LABS: Basophils % 0.6 % (0.0-0.8); Eosinophils # 0.4 10*3/uL (0.0-0.87); Eosinophils % 10.6 % (0.00-10.9); Hematocrit 30.8 VOL% (35.7-47.0); Hemoglobin 9.7 GM/DL (12.0-16.0); Immature Granulocytes % 0.3 %; Immature Granulocytes Absolute 0.01 #; Lymphocytes # 0.8 10*3/uL (1.4-4.0); Mean Corpuscular HGB Conc 31.5 GM/DL (32-36); Mean Corpuscular Volume 96.6 FL (87-102); Monocytes % 9.5 % (1.7-12.7); Platelet Count 123 T/CUMM (130-400); Red Blood Count 3.19 MC/CUMM (3.8-5.5); Red Cell Distribution Width 16.1 % (9.3-17.3); White Blood Count 3.5 T/CUMM (4-12)
[2018-12-10 08:54] LABS: Band Neutrophils 1 % (0-10); Eosinophils 8 % (0-10); Hypochromasia 1+; Lymphocytes 21 % (20-55); Platelet Estimate Normal; Segmented Neutrophils 62 % (50-85); Total Cells Counted 100
[2018-12-10 09:16] LABS: Calcium 9.1 MG/DL (8.5-10.1)
[2018-12-10] MEDS: PANTOPRAZOLE 40 MG VIAL IV SCH ×2 (09:16→20:00)
[2018-12-10] MEDS: DEXTROSE 5% 1,000 ML IV SCH ×3 (11:22→23:14)
[2018-12-11] MEDS: INSULIN REGULAR 100 UNIT/ML SUBCUT SCH ×2 (01:16→06:45)
[2018-12-11 06:26] LABS: Basophils % 0.5 % (0.0-0.8); Eosinophils # 0.4 10*3/uL (0.0-0.87); Eosinophils % 10.3 % (0.00-10.9); Hematocrit 27.5 VOL% (35.7-47.0); Hemoglobin 8.8 GM/DL (12.0-16.0); Immature Granulocytes % 0.3 %; Immature Granulocytes Absolute 0.01 #; Mean Corpuscular Volume 95.8 FL (87-102); Mean Platelet Volume 9.4 FL (9.6-12.0); Neutrophils % 53.9 % (38.7-73.9); Platelet Count 124 T/CUMM (130-400); Red Blood Count 2.87 MC/CUMM (3.8-5.5); Red Cell Distribution Width 15.5 % (9.3-17.3)
[2018-12-11] MEDS: DEXTROSE 5% 1,000 ML IV SCH (06:45)
[2018-12-11 06:52] LABS: Calcium 8.2 MG/DL (8.5-10.1); Osmolality,Calculated 319.1 MOS/KG (273-304)
[2018-12-11 07:22] LABS: Eosinophils 7 % (0-10); Lymphocytes 23 % (20-55); Platelet Estimate Decreased; Polychromasia Few; Segmented Neutrophils 62 % (50-85); Total Cells Counted 100
[2018-12-11 09:13] VITALS: BP 149/71
[2018-12-11] MEDS: PANTOPRAZOLE 40 MG VIAL IV SCH (10:00)
== END 2018-12-11 11:55 | DRG 378 ==
LOC: EDUNIT# → EDBD → N.ED 14:46 → N.EDINP 14:46 → SUATTDRO 15:27 → N.5E 15:44
PROVIDERS: ADMIT Emergency Medicine; ATTEND Internal Medicine

== ENCOUNTER 2018-12-20 11:56 | Observation (INO) ==
[2018-12-20 13:48] LABS: Basophils # 0.1 10*3/uL (0.0-0.2); Eosinophils # 0.5 10*3/uL (0.0-0.87); Eosinophils % 9.2 % (0.00-10.9); Hematocrit 33.7 VOL% (35.7-47.0); Hemoglobin 10.4 GM/DL (12.0-16.0); Immature Granulocytes % 0.2 %; Immature Granulocytes Absolute 0.01 #; Lymphocytes # 1.4 10*3/uL (1.4-4.0); Lymphocytes % 27.9 % (21.3-54.2); Mean Corpuscular HGB Conc 30.9 GM/DL (32-36); Mean Corpuscular Volume 96.3 FL (87-102); Mean Platelet Volume 9.2 FL (9.6-12.0); Monocytes % 8.6 % (1.7-12.7); Neutrophils % 53.1 % (38.7-73.9); Platelet Count 153 T/CUMM (130-400); Red Cell Distribution Width 15.3 % (9.3-17.3)
[2018-12-20 13:58] LABS: Partial Thromboplastin Time 23.6 SECS (20.8-36.0)
[2018-12-20 14:04] LABS: Calcium 8.5 MG/DL (8.5-10.1); Osmolality,Calculated 315.9 MOS/KG (273-304)
[2018-12-20] MEDS ORDERED: SODIUM CHLORIDE 0.9% 1,000 ML IV STA (15:08)
[2018-12-20] MEDS ORDERED: ONDANSETRON 4 MG/2 ML VIAL IV PRN (16:04)
[2018-12-20] MEDS ORDERED: ACETAMINOPHEN 325 MG TABLET PO PRN (16:04)
[2018-12-20 16:22] LABS: Bacteria,Urine Occasional /HPF (Few); Mucus,Urine Occasional /LPF (Occasional); RBC,Urine 52 /HPF (0-4); Squamous Epithelial Cell,Urine Occasional /HPF (0-10)
[2018-12-20 16:24] LABS: Apearance,Urine Slightly Hazy (Clear); Bilirubin,Urine Negative (Negative); Blood, Urine Small mg/dL (Negative); Glucose,Urine (UA) Negative (Negative); Ketones,Urine Negative (Negative); Nitrite,Urine Negative (Negative); Protein,Urine >=500 MG/DL; Urine Color Yellow (Yellow); Urine Urobilinogen 0.2 EU/DL (0.2-1.0); WBC,Urine 3 /HPF (0-6)
[2018-12-20] MEDS ORDERED: SODIUM CHLORIDE 0.45% 1,000 ML IV SCH (16:30)
[2018-12-20] MEDS ORDERED: SODIUM CHLORIDE 0.9% 1,000 ML IV SCH (16:30)
[2018-12-20 16:38] LABS: Thyroid Stimulating Hormone 2.79 uIU/ml (0.358-3.74)
[2018-12-20] MEDS: HEPARIN 5,000 UNIT/1 ML VIAL SUBCUT SCH (17:14)
[2018-12-20] MEDS: SODIUM CHLORIDE 0.45% 1,000 ML IV SCH (17:24)
[2018-12-20] MEDS: FAMOTIDINE 20 MG TABLET PEG SCH (20:21)
[2018-12-21] MEDS: SODIUM CHLORIDE 0.45% 1,000 ML IV SCH ×3 (01:55→21:14)
[2018-12-21] MEDS: HEPARIN 5,000 UNIT/1 ML VIAL SUBCUT SCH ×3 (01:56→18:32)
[2018-12-21 04:29] LABS: Basophils % 0.9 % (0.0-0.8); Eosinophils # 0.4 10*3/uL (0.0-0.87); Eosinophils % 9.7 % (0.00-10.9); Hematocrit 31.4 VOL% (35.7-47.0); Hemoglobin 9.7 GM/DL (12.0-16.0); Immature Granulocytes % 0.2 %; Immature Granulocytes Absolute 0.01 #; Lymphocytes # 1.6 10*3/uL (1.4-4.0); Lymphocytes % 36.3 % (21.3-54.2); Mean Corpuscular HGB Conc 30.9 GM/DL (32-36); Mean Corpuscular Volume 97.5 FL (87-102); Mean Platelet Volume 9.5 FL (9.6-12.0); Monocytes % 11.1 % (1.7-12.7); Neutrophils % 41.8 % (38.7-73.9); Platelet Count 128 T/CUMM (130-400); Red Blood Count 3.22 MC/CUMM (3.8-5.5); Red Cell Distribution Width 15.1 % (9.3-17.3); White Blood Count 4.3 T/CUMM (4-12)
[2018-12-21 04:45] LABS: Calcium 8.2 MG/DL (8.5-10.1); Osmolality,Calculated 308.3 MOS/KG (273-304)
[2018-12-21] MEDS: PANTOPRAZOLE 40 MG TABLET PO SCH (05:13)
[2018-12-21] MEDS: FERROUS SULFATE 300 MG/5 ML UDCUP PEG SCH ×2 (08:20→16:03)
[2018-12-21] MEDS ORDERED: MAGNESIUM SULF RIDER 2 GM in PREMIX 1 EACH IV PRN (08:35)
[2018-12-21] MEDS ORDERED: PANTOPRAZOLE 40 MG TABLET PO SCH (09:00)
[2018-12-21] MEDS ORDERED: MAGNESIUM SULF RIDER 4 GM in PREMIX 1 EACH IV PRN (11:00)
[2018-12-21] MEDS: FAMOTIDINE 20 MG TABLET PEG SCH (21:14)
[2018-12-22] MEDS: HEPARIN 5,000 UNIT/1 ML VIAL SUBCUT SCH ×2 (01:12→09:03)
[2018-12-22] MEDS: SODIUM CHLORIDE 0.45% 1,000 ML IV SCH ×2 (06:48→09:42)
[2018-12-22 08:30] LABS: Basophils % 0.8 % (0.0-0.8); Eosinophils # 0.5 10*3/uL (0.0-0.87); Eosinophils % 12.7 % (0.00-10.9); Hematocrit 31.5 VOL% (35.7-47.0); Hemoglobin 9.9 GM/DL (12.0-16.0); Immature Granulocytes % 0.3 %; Immature Granulocytes Absolute 0.01 #; Lymphocytes # 1.1 10*3/uL (1.4-4.0); Lymphocytes % 31.3 % (21.3-54.2); Mean Corpuscular HGB Conc 31.4 GM/DL (32-36); Mean Platelet Volume 9.7 FL (9.6-12.0); Monocytes % 9.9 % (1.7-12.7); Platelet Count 152 T/CUMM (130-400); Red Blood Count 3.28 MC/CUMM (3.8-5.5); Red Cell Distribution Width 15.3 % (9.3-17.3); White Blood Count 3.6 T/CUMM (4-12)
[2018-12-22 08:56] LABS: Calcium 8.5 MG/DL (8.5-10.1); Osmolality,Calculated 305.4 MOS/KG (273-304)
[2018-12-22] MEDS: PANTOPRAZOLE 40 MG TABLET PO SCH (09:03)
[2018-12-22] MEDS: FERROUS SULFATE 300 MG/5 ML UDCUP PEG SCH (09:03)
[2018-12-22 09:54] LABS: Eosinophils 12 % (0-10); Lymphocytes 31 % (20-55); Total Cells Counted 100
[2018-12-22 09:55] LABS: Acanthocytes 1+; Anisocytosis Slight; Elliptocytes Few
[2018-12-22 09:56] LABS: Platelet Estimate Decreased; Segmented Neutrophils 51 % (50-85)
[2018-12-22 12:41] VITALS: BP 149/68
== END 2018-12-22 12:38 ==
LOC: EDUNIT# → EDBD → N.ED 11:56 → N.EDINP 11:56 → N.4E 16:55
PROVIDERS: ADMIT Emergency Medicine; ATTEND Emergency Medicine

== ENCOUNTER 2019-12-22 17:15 | Inpatient (IN) ==
[2019-12-22 18:24] LABS: Basophils % 0.6 % (0.0-0.8); Eosinophils # 0.6 10*3/uL (0.0-0.87); Hematocrit 35.5 VOL% (35.7-47.0); Hemoglobin 11.8 GM/DL (12.0-16.0); Immature Granulocytes % 0.4 %; Immature Granulocytes Absolute 0.03 #; Lymphocytes # 1.8 10*3/uL (1.4-4.0); Lymphocytes % 26.8 % (21.3-54.2); Mean Corpuscular HGB Conc 33.2 GM/DL (32-36); Mean Corpuscular Volume 94.2 FL (87-102); Mean Platelet Volume 9.1 FL (9.6-12.0); Neutrophils % 54.2 % (38.7-73.9); Platelet Count 124 T/CUMM (130-400); Red Blood Count 3.77 MC/CUMM (3.8-5.5); White Blood Count 6.7 T/CUMM (4-12)
[2019-12-22 19:07] LABS: Albumin 3.1 G/DL (3.4-5.0); Bilirubin,Total 0.4 MG/DL (0.2-1.0); Calcium 9.1 MG/DL (8.5-10.1); Osmolality,Calculated 269.8 MOS/KG (273-304); Total Protein 7.5 G/DL (6.4-8.3)
[2019-12-22] MEDS ORDERED: ONDANSETRON 4 MG/2 ML VIAL IV PRN (20:44)
[2019-12-22] MEDS ORDERED: GLUCAGON 1 MG VIAL IM PRN (20:44)
[2019-12-22] MEDS ORDERED: DEXTROSE 50% 25 GM/50 ML VIAL IV PRN (20:44)
[2019-12-22] MEDS ORDERED: DEXT 5% NACL 0.45% KCL 40 MEQ 40 MEQ/1,000 ML BAG IV SCH (21:00)
[2019-12-22] MEDS ORDERED: LEVOFLOXACIN INJ 500 MG in PREMIX 1 EACH IV ONE (21:30)
[2019-12-22] MEDS: HEPARIN 5,000 UNIT/1 ML VIAL SUBCUT SCH (22:46)
[2019-12-23 04:17] LABS: Basophils % 0.7 % (0.0-0.8); Eosinophils # 0.5 10*3/uL (0.0-0.87); Eosinophils % 8.6 % (0.00-10.9); Hematocrit 33.7 VOL% (35.7-47.0); Hemoglobin 10.9 GM/DL (12.0-16.0); Immature Granulocytes % 0.2 %; Immature Granulocytes Absolute 0.01 #; Lymphocytes # 2.1 10*3/uL (1.4-4.0); Lymphocytes % 34.3 % (21.3-54.2); Mean Corpuscular HGB Conc 32.3 GM/DL (32-36); Mean Corpuscular Volume 96.3 FL (87-102); Mean Platelet Volume 9.5 FL (9.6-12.0); Monocytes % 10.6 % (1.7-12.7); Neutrophils % 45.6 % (38.7-73.9); Platelet Count 109 T/CUMM (130-400); Red Cell Distribution Width 14.9 % (9.3-17.3); White Blood Count 6.1 T/CUMM (4-12)
[2019-12-23] MEDS: HEPARIN 5,000 UNIT/1 ML VIAL SUBCUT SCH ×3 (04:23→21:20)
[2019-12-23 04:38] LABS: Calcium 9.1 MG/DL (8.5-10.1)
[2019-12-23 05:35] LABS: Hypochromasia Slight; Microcytosis Slight
[2019-12-23 05:36] LABS: Ovalocytes Slight; Platelet Estimate Decreased
[2019-12-23 10:33] LABS: ABG Base Excess 8.1 MMOL/L (-2.5-2.5); ABG HCO3 31.9 MMOL/L (20-26); ABG Oxygen Saturation 99.1 % (95-100); ABG PCO2 49.2 MM HG (35-48); ABG PH 7.442 (7.35-7.45); ABG TCO2 29.9 MMOL/L (23-27)
[2019-12-23] MEDS ORDERED: SODIUM PHOSPHATE ENEMA 133 ML BOTTLE RECTAL ONE (14:00)
[2019-12-23] MEDS ORDERED: DEXT 5% NACL 0.9% KCL 20 MEQ 20 MEQ/1,000 ML BAG IV SCH (15:00)
[2019-12-24] MEDS: HEPARIN 5,000 UNIT/1 ML VIAL SUBCUT SCH ×3 (05:08→20:10)
[2019-12-24 05:17] LABS: Basophils % 0.5 % (0.0-0.8); Eosinophils # 0.5 10*3/uL (0.0-0.87); Eosinophils % 8.6 % (0.00-10.9); Hematocrit 33.9 VOL% (35.7-47.0); Hemoglobin 11.3 GM/DL (12.0-16.0); Immature Granulocytes % 0.2 %; Immature Granulocytes Absolute 0.01 #; Lymphocytes # 1.8 10*3/uL (1.4-4.0); Lymphocytes % 31.5 % (21.3-54.2); Mean Corpuscular HGB Conc 33.3 GM/DL (32-36); Mean Corpuscular Volume 95.8 FL (87-102); Mean Platelet Volume 9.4 FL (9.6-12.0); Monocytes % 12.1 % (1.7-12.7); Neutrophils % 47.1 % (38.7-73.9); Platelet Count 128 T/CUMM (130-400); Red Blood Count 3.54 MC/CUMM (3.8-5.5); Red Cell Distribution Width 15.1 % (9.3-17.3); White Blood Count 5.7 T/CUMM (4-12)
[2019-12-24 05:45] LABS: Calcium 9.1 MG/DL (8.5-10.1); Osmolality,Calculated 274.7 MOS/KG (273-304)
[2019-12-24] MEDS ORDERED: ACETAMINOPHEN 325 MG TABLET PO PRN (08:43)
[2019-12-24] MEDS ORDERED: ONDANSETRON 4 MG TABLET PO PRN (08:43)
[2019-12-24] MEDS ORDERED: ASCORBIC ACID 500 MG TABLET PO SCH (09:00)
[2019-12-24] MEDS ORDERED: VANCOMYCIN INJ 750 MG in SODIUM CHLORIDE 0.9% 250 ML IV PRN (09:00)
[2019-12-24] MEDS ORDERED: VANCOMYCIN INJ 2,000 MG in SODIUM CHLORIDE 0.9% 500 ML IV ONE (11:00)
[2019-12-24] MEDS: ASPIRIN CHEW 81 MG TABLET PO SCH (16:51)
[2019-12-24] MEDS: PANTOPRAZOLE 40 MG TABLET PO SCH (16:52)
[2019-12-24] MEDS: FAMOTIDINE 20 MG TABLET PO SCH ×2 (16:52→20:11)
[2019-12-24] MEDS: ASCORBIC ACID 500 MG TABLET PO SCH (17:11)
[2019-12-24] MEDS: MULTIVITAMIN (BEROCCA) TABLET PO SCH (17:14)
[2019-12-24] MEDS: COLCHICINE 0.6 MG CAPSULE PO SCH (17:14)
[2019-12-24] MEDS: POLYETHYLENE GLYCOL POWDER 17 GM PACK PO SCH (20:11)
[2019-12-24] MEDS: DOCUSATE SODIUM 100 MG CAPSULE PO SCH (20:11)
[2019-12-24] MEDS ORDERED: SENNA 8.6 MG TABLET PO SCH (21:00)
[2019-12-24] MEDS: LEVOFLOXACIN INJ 250 MG in PREMIX 1 EACH IV SCH (22:40)
[2019-12-25] MEDS: HEPARIN 5,000 UNIT/1 ML VIAL SUBCUT SCH ×3 (04:57→21:10)
[2019-12-25 05:05] LABS: Basophils # 0.1 10*3/uL (0.0-0.2); Basophils % 0.8 % (0.0-0.8); Eosinophils # 0.6 10*3/uL (0.0-0.87); Eosinophils % 9.3 % (0.00-10.9); Hematocrit 31.5 VOL% (35.7-47.0); Hemoglobin 10.4 GM/DL (12.0-16.0); Immature Granulocytes % 0.3 %; Immature Granulocytes Absolute 0.02 #; Lymphocytes # 2.4 10*3/uL (1.4-4.0); Lymphocytes % 37.9 % (21.3-54.2); Mean Corpuscular Volume 96.6 FL (87-102); Mean Platelet Volume 9.1 FL (9.6-12.0); Neutrophils % 37.7 % (38.7-73.9); Platelet Count 120 T/CUMM (130-400); Red Blood Count 3.26 MC/CUMM (3.8-5.5); Red Cell Distribution Width 15.2 % (9.3-17.3); White Blood Count 6.2 T/CUMM (4-12)
[2019-12-25 05:25] LABS: Calcium 8.5 MG/DL (8.5-10.1); Osmolality,Calculated 283.4 MOS/KG (273-304)
[2019-12-25 05:49] LABS: Eosinophils 14 % (0-10); Hypochromasia 1+; Lymphocytes 33 % (20-55); Segmented Neutrophils 44 % (50-85); Total Cells Counted 100
[2019-12-25] MEDS: MULTIVITAMIN (BEROCCA) TABLET PO SCH (09:05)
[2019-12-25] MEDS: ASPIRIN CHEW 81 MG TABLET PO SCH (09:05)
[2019-12-25] MEDS: DOCUSATE SODIUM 100 MG CAPSULE PO SCH ×2 (09:06→21:10)
[2019-12-25] MEDS: FAMOTIDINE 20 MG TABLET PO SCH ×2 (09:06→21:10)
[2019-12-25] MEDS: PANTOPRAZOLE 40 MG TABLET PO SCH (09:06)
[2019-12-25] MEDS: ASCORBIC ACID 500 MG TABLET PO SCH (09:06)
[2019-12-25 10:57] LABS: Hepatitis B Core IgM Quant 0.08 Index; Hepatitis B Surface Ag Quant < 0.10 Index; Hepatitis B Surface Ag Result Negative (Negative); Hepatitis C Virus Ab Quant 0.05 Index; Hepatitis C Virus Ab Result Negative (Negative)
[2019-12-25] MEDS: POLYETHYLENE GLYCOL POWDER 17 GM PACK PO SCH (11:30)
[2019-12-25] MEDS: COLCHICINE 0.6 MG CAPSULE PO SCH (11:30)
[2019-12-25] MEDS ORDERED: HEPARIN 10,000 UNIT/10 ML VIAL IV SCH (11:45)
[2019-12-25] MEDS ORDERED: VANCOMYCIN INJ 750 MG in SODIUM CHLORIDE 0.9% 250 ML IV ONE ×2 (17:00→18:30)
[2019-12-26] MEDS: HEPARIN 5,000 UNIT/1 ML VIAL SUBCUT SCH ×3 (04:28→20:33)
[2019-12-26 06:38] LABS: Basophils # 0.1 10*3/uL (0.0-0.2); Basophils % 1.1 % (0.0-0.8); Eosinophils # 0.6 10*3/uL (0.0-0.87); Eosinophils % 10.7 % (0.00-10.9); Hematocrit 32.8 VOL% (35.7-47.0); Hemoglobin 10.5 GM/DL (12.0-16.0); Immature Granulocytes % 0.5 %; Immature Granulocytes Absolute 0.03 #; Lymphocytes % 35.9 % (21.3-54.2); Mean Corpuscular Volume 97.6 FL (87-102); Mean Platelet Volume 9.1 FL (9.6-12.0); Monocytes % 13.2 % (1.7-12.7); Neutrophils % 38.6 % (38.7-73.9); Platelet Count 116 T/CUMM (130-400); Red Blood Count 3.36 MC/CUMM (3.8-5.5); Red Cell Distribution Width 15.4 % (9.3-17.3); White Blood Count 5.6 T/CUMM (4-12)
[2019-12-26 06:55] LABS: Calcium 8.9 MG/DL (8.5-10.1); Osmolality,Calculated 273.8 MOS/KG (273-304)
[2019-12-26 07:09] LABS: Eosinophils 12 % (0-10); Lymphocytes 36 % (20-55); Nucleated Red Blood Cells 1 (0-5); Segmented Neutrophils 43 % (50-85); Total Cells Counted 100
[2019-12-26 07:10] LABS: Hypochromasia Slight; Platelet Estimate Normal
[2019-12-26] MEDS: ASPIRIN CHEW 81 MG TABLET PO SCH (09:22)
[2019-12-26] MEDS: ASCORBIC ACID 500 MG TABLET PO SCH (09:22)
[2019-12-26] MEDS: DOCUSATE SODIUM 100 MG CAPSULE PO SCH ×2 (09:22→20:34)
[2019-12-26] MEDS: COLCHICINE 0.6 MG CAPSULE PO SCH (09:23)
[2019-12-26] MEDS: PANTOPRAZOLE 40 MG TABLET PO SCH (09:23)
[2019-12-26] MEDS: MULTIVITAMIN (BEROCCA) TABLET PO SCH (09:23)
[2019-12-26] MEDS: FAMOTIDINE 20 MG TABLET PO SCH ×2 (09:23→20:33)
[2019-12-26] MEDS: LEVOFLOXACIN INJ 250 MG in PREMIX 1 EACH IV SCH (20:33)
[2019-12-27] MEDS: HEPARIN 5,000 UNIT/1 ML VIAL SUBCUT SCH ×2 (04:18→12:19)
[2019-12-27 05:22] LABS: Basophils # 0.1 10*3/uL (0.0-0.2); Basophils % 0.9 % (0.0-0.8); Eosinophils # 0.6 10*3/uL (0.0-0.87); Eosinophils % 10.2 % (0.00-10.9); Hematocrit 32.4 VOL% (35.7-47.0); Hemoglobin 10.5 GM/DL (12.0-16.0); Immature Granulocytes % 0.4 %; Immature Granulocytes Absolute 0.02 #; Lymphocytes # 1.9 10*3/uL (1.4-4.0); Lymphocytes % 34.2 % (21.3-54.2); Mean Corpuscular HGB Conc 32.4 GM/DL (32-36); Mean Corpuscular Volume 96.4 FL (87-102); Mean Platelet Volume 9.5 FL (9.6-12.0); Monocytes % 12.4 % (1.7-12.7); Neutrophils % 41.9 % (38.7-73.9); Platelet Count 144 T/CUMM (130-400); Red Blood Count 3.36 MC/CUMM (3.8-5.5); Red Cell Distribution Width 15.2 % (9.3-17.3); White Blood Count 5.4 T/CUMM (4-12)
[2019-12-27 05:40] LABS: Osmolality,Calculated 283.5 MOS/KG (273-304)
[2019-12-27 05:50] LABS: Hypochromasia 1+
[2019-12-27 05:51] LABS: Microcytosis Slight; Ovalocytes Slight; Platelet Estimate Adequate
[2019-12-27] MEDS: ASPIRIN CHEW 81 MG TABLET PO SCH (09:10)
[2019-12-27] MEDS: MULTIVITAMIN (BEROCCA) TABLET PO SCH (09:10)
[2019-12-27] MEDS: DOCUSATE SODIUM 100 MG CAPSULE PO SCH (09:11)
[2019-12-27] MEDS: FAMOTIDINE 20 MG TABLET PO SCH (09:11)
[2019-12-27] MEDS: ASCORBIC ACID 500 MG TABLET PO SCH (09:11)
[2019-12-27] MEDS: COLCHICINE 0.6 MG CAPSULE PO SCH (09:11)
[2019-12-27] MEDS: PANTOPRAZOLE 40 MG TABLET PO SCH (09:11)
[2019-12-27] MEDS ORDERED: VANCOMYCIN INJ 750 MG in SODIUM CHLORIDE 0.9% 250 ML IV ONE (12:00)
[2019-12-27 12:46] VITALS: BP 104/43
== END 2019-12-27 16:20 | DRG 871 ==
LOC: N.EDINP 17:15 → N.ED 17:15 → SUATTDRO 19:55 → N.3E 20:58 → SUATTDRO 12-24 08:40
PROVIDERS: ADMIT Hospitalist; ATTEND Internal Medicine

== ENCOUNTER 2020-03-13 19:07 | Observation (INO) ==
[2020-03-13 20:35] LABS: Basophils # 0.1 10*3/uL (0.0-0.2); Basophils % 0.8 % (0.0-0.8); Eosinophils # 0.4 10*3/uL (0.0-0.87); Eosinophils % 7.2 % (0.00-10.9); Hematocrit 38.3 VOL% (35.7-47.0); Hemoglobin 12.2 GM/DL (12.0-16.0); Immature Granulocytes % 0.7 %; Immature Granulocytes Absolute 0.04 #; Lymphocytes % 32.2 % (21.3-54.2); Mean Corpuscular HGB Conc 31.9 GM/DL (32-36); Mean Platelet Volume 8.7 FL (9.6-12.0); Neutrophils % 50.1 % (38.7-73.9); Platelet Count 151 T/CUMM (130-400); Red Blood Count 3.83 MC/CUMM (3.8-5.5); Red Cell Distribution Width 15.1 % (9.3-17.3); White Blood Count 6.1 T/CUMM (4-12)
[2020-03-13 20:59] LABS: Blood Urea Nitrogen 12 MG/DL (7-18); Estimated Glom Filtration Rate 22 ML/MIN; Glucose 69 MG/DL (74-106); Osmolality,Calculated 276.4 MOS/KG (273-304)
[2020-03-13 21:02] LABS: Troponin I 0.092 NG/ML (0.00-0.045)
[2020-03-13] MEDS ORDERED: SODIUM CHLORIDE 0.9% 1,000 ML IV STA (22:40)
[2020-03-14] MEDS ORDERED: SODIUM CHLORIDE 0.9% 500 ML IV STA (00:20)
[2020-03-14] MEDS ORDERED: MIDODRINE 5 MG TABLET PO ONE (01:38)
[2020-03-14] MEDS ORDERED: ONDANSETRON 4 MG/2 ML VIAL IV PRN (01:46)
[2020-03-14] MEDS ORDERED: GLUCAGON 1 MG VIAL IM PRN (01:46)
[2020-03-14] MEDS ORDERED: POTASSIUM CHLORIDE 20 MEQ TABLET PO STA (02:46)
[2020-03-14] MEDS ORDERED: DEXTROSE 50% 25 GM/50 ML VIAL IV PRN (04:05)
[2020-03-14] MEDS: INSULIN REGULAR 100 UNIT/ML SUBCUT SCH ×4 (07:52→20:03)
[2020-03-14] MEDS: DEXTROSE 50% 25 GM/50 ML VIAL IV PRN (10:02)
[2020-03-14 14:33] LABS: Troponin I 0.124 NG/ML (0.00-0.045)
[2020-03-14] MEDS ORDERED: MIDODRINE 2.5 MG TABLET PO PRN (15:12)
[2020-03-14 16:43] LABS: Troponin I 0.121 NG/ML (0.00-0.045)
[2020-03-15 06:14] LABS: Basophils % 0.7 % (0.0-0.8); Eosinophils # 0.3 10*3/uL (0.0-0.87); Eosinophils % 5.6 % (0.00-10.9); Hematocrit 33.9 VOL% (35.7-47.0); Hemoglobin 10.8 GM/DL (12.0-16.0); Immature Granulocytes % 0.5 %; Immature Granulocytes Absolute 0.03 #; Lymphocytes # 1.9 10*3/uL (1.4-4.0); Lymphocytes % 30.7 % (21.3-54.2); Mean Corpuscular HGB Conc 31.9 GM/DL (32-36); Mean Platelet Volume 9.2 FL (9.6-12.0); Monocytes % 9.8 % (1.7-12.7); Neutrophils % 52.7 % (38.7-73.9); Platelet Count 154 T/CUMM (130-400); Red Blood Count 3.46 MC/CUMM (3.8-5.5); Red Cell Distribution Width 15.4 % (9.3-17.3)
[2020-03-15 06:31] LABS: Calcium 8.8 MG/DL (8.5-10.1); Osmolality,Calculated 282.4 MOS/KG (273-304)
[2020-03-15 06:34] LABS: Risk Ratio 1.67; VLDL CHOLESTEROL 9.6 MG/DL
[2020-03-15] MEDS: DEXTROSE 50% 25 GM/50 ML VIAL IV PRN (09:01)
[2020-03-15] MEDS: INSULIN REGULAR 100 UNIT/ML SUBCUT SCH ×3 (09:10→16:10)
[2020-03-15 13:50] LABS: Hepatitis B Core IgM Quant 0.13 Index; Hepatitis B Surface Ag Quant < 0.10 Index; Hepatitis B Surface Ag Result Non-Reactive (NonReactive); Hepatitis C Virus Ab Quant 0.03 Index; Hepatitis C Virus Ab Result Non-Reactive (NonReactive)
[2020-03-15 17:25] VITALS: BP 101/67
== END 2020-03-15 18:39 ==
LOC: EDBD → EDUNIT# → N.ED 19:07 → N.EDINP 19:07 → N.TELEN 03-14 09:21
PROVIDERS: ADMIT Internal Medicine; ATTEND Internal Medicine